=== PATIENT | female | born 1980 | race Two or more races ===

== ENCOUNTER 2016-11-18 11:22 | Emergency (ER) | payer OTHER ==
[2016-11-18 11:29] VITALS: BP 112/78; PULSE 77; TEMP 98.7; BMI 26.2
[2016-11-18 12:12] LABS: BASOPHIL 0.6 % (0-2.0); EOSINOPHIL 0.6 % (0-4.5); MCH 31.8 pg (25.7-33.7); MCHC 34.3 g/dl (32.0-36.0); MEAN CELL VOLUME 92.9 fl (80-96); MEAN PLT VOLUME 9.1 fl (7.5-11.1); NEUTROPHILS 61.7 % (42.8-82.8); PLATELET COUNT 325 K/MM3 (134-434); RDW 12.5 % (11.6-15.6)
[2016-11-18] MEDS ORDERED: KETOROLAC TROMETHAMINE 30 MG/1 ML VIAL IVPUSH ONE (12:17)
[2016-11-18 12:22] LABS: URINE APPEARANCE CLEAR; URINE BILIRUBIN NEGATIVE (NEGATIVE); URINE BLOOD NEGATIVE (NEGATIVE); URINE COLOR STRAW; URINE GLUCOSE (UA) NEGATIVE (NEGATIVE); URINE KETONE NEGATIVE (NEGATIVE); URINE LEUK ESTERASE NEGATIVE (NEGATIVE); URINE NITRITE NEGATIVE (NEGATIVE); URINE PROTEIN NEGATIVE (NEGATIVE); URINE UROBILINOGEN NEGATIVE mg/dL (0.2-1.0)
[2016-11-18 12:39] LABS: ALK PHOS 59 U/L (45-117); ANION GAP 7 (8-16); BILIRUBIN,TOTAL 0.4 mg/dL (0.2-1.0); CALCIUM 9.1 mg/dL (8.5-10.1); CO2 25 mmol/L (21-32); GLUCOSE,RANDOM 84 mg/dL (74-106); SGOT/AST 17 U/L (15-37); SGPT/ALT 14 U/L (12-78); TOT PROT 7.8 g/dl (6.4-8.2)
[2016-11-18] MEDS ORDERED: KETOROLAC TROMETHAMINE 15 MG/ML VIAL ONE (12:51)
--- NOTE | 2016-11-18 12:57 | PDOC ---
History of Present Illness - General History Source: Patient Exam Limitations: No Limitations - History of Present Illness Initial Comments: 11/18/16 13:20 Patient is a 34 year old female with no significant past medical history who presents for LLQ pain for 2 weeks. She states that the pain is constant, weaning and waning, radiating to the left back. She states that the pain is exacerbated by movement but not by positional changes. Patient reports urinary frequency and few blood drops in her urine. She states that she was seen by her PCP on Tuesday and was given Cipro which she developed allergic reaction to and was switched to Bactrim. She denies taking anything for the pain. Patient states that she was seen for the same complaint in 04/[address] and US which revealed 1.5 cm left ovarian cyst otherwise unremarkable. She denies any associated nausea/vomiting, diarrhea/constipation, fevers/chills , dysuria, abnormal vaginal discharge, dyspareunia, or any other symptoms. LMP 10/22/[address] Springer. She reports she has seen him for this pain and had lab work up for UTI. <Ruma Patterson - Last Filed: 11/18/16 13:20> <Checo Dorsey - Last Filed: 11/18/16 15:47> - General Chief Complaint: Pain Stated Complaint: LT SIDE PAIN Time Seen by Provider: 11/18/16 11:40 Past History <Ruma Patterson - Last Filed: 11/18/16 13:20> - Past Medical History Other medical history: NONE - Psycho/Social/Smoking Cessation Hx Anxiety: No Suicidal Ideation: No Smoking History: Never smoked Have you smoked in the past 12 months: No Number of Cigarettes Smoked Daily: 0 Information on smoking cessation initiated: No Hx Alcohol Use: No Drug/Substance Use Hx: No Substance Use Type: None <Checo Dorsey - Last Filed: 11/18/16 15:47> - Past Medical History Allergies/Adverse Reactions: Allergies Allergy/AdvReac Type Severity Reaction Status Date / Time ciprofloxacin [From Cipro] Allergy Verified 11/18/16 11:43 ciprofloxacin HCl Allergy Verified 11/18/16 11:43 [From Cipro] Penicillins Allergy Verified 11/18/16 11:25 Home Medications: Ambulatory Orders NK [No Known Home Medication] 10/04/15 Review of Systems - Review of Systems Able to Perform ROS?: Yes Comments:: 11/18/16 13:20 CONSTITUTIONAL: No reported: Fever, Chills, Diaphoresis, Generalized Weakness, Malaise, Loss of Appetite HEENT: No reported: Rhinorrhea, Nasal Congestion, Throat Pain, Throat Swelling, Difficulty Swallowing, Mouth Swelling, Ear Pain, Eye Pain, Visual Changes CARDIOVASCULAR: No reported: Chest Pain, Syncope, Palpitations, Irregular Heart Rate, Lightheadedness, Peripheral Edema RESPIRATORY: No reported: Cough, Shortness of Breath, SOB with Exertion, Orthopnea, Wheezing , Stridor, Hemoptysis GASTROINTESTINAL: Present: abdominal pain No reported: Abdominal Distension, Nausea, Vomiting, Diarrhea, Constipation, Melena, Hematochezia GENITOURINARY: No reported: Dysuria, Frequency, Urgency, Hesitancy, Flank Pain, Genital Pain MUSCULOSKELETAL: No reported: Myalgia, Arthralgia, Joint Swelling, Back pain, Neck Pain SKIN: No reported: Rash, Itching, Pallor HEMEATOLOGIC/IMMUNOLOGIC: No reported: Easy Bleeding, Easy Bruising, Lymphadenopathy, Frequent infections ENDOCRINE: No reported: Unexplained Weight Gain, Unexplained Weight Loss, Heat Intolerance , Cold Intolerance NEUROLOGIC: No reported: Headache, Focal Weakness, Paresthesias, Vertigo, Lightheadedness, Unsteady Gait, Seizure, Mental Status Changes, Incontinence PSYCHIATRIC: No reported: Anxiety, Depression <Ruma Patterson - Last Filed: 11/18/16 13:20> *Physical Exam - Vital Signs Last Vital Signs Temp Pulse Resp BP Pulse Ox 98.7 F 77 18 112/78 100 11/18/16 11:27 11/18/16 11:27 11/18/16 11:27 11/18/16 11:27 11/18/16 11:27 - Physical Exam Comments: 11/18/16 13:21 GENERAL: The patient is awake, alert, and fully oriented, Nontoxic - in no acute distress. HEAD: Normocephalic, atraumatic. EYES: extraocular movements intact, sclera anicteric, conjunctiva clear. ENT: Normal voice, Moist mucous membranes. NECK: Normal range of motion, supple LUNGS: Breath sounds equal, clear to auscultation bilaterally. No wheezes, no rhonchi, no rales. HEART: Regular rate and rhythm, without murmur, rub or gallop. ABDOMEN: (+)mild LLQ tenderness upon palpation. Soft, normoactive bowel sounds. No guarding, no rebound.No CVA tenderness EXTREMITIES: Normal range of motion, no edema. No clubbing or cyanosis. No cords , erythema, or tenderness. NEUROLOGICAL: No facial assymetry, Normal speech, PSYCH: Normal mood, normal affect. SKIN: Warm, Dry, normal turgor <Ruma Patterson - Last Filed: 11/18/16 13:20> - Vital Signs Last Vital Signs Temp Pulse Resp BP Pulse Ox 98.7 F 77 18 112/78 100 11/18/16 11:27 11/18/16 11:27 11/18/16 11:27 11/18/16 11:27 11/18/16 11:27 <Checo Dorsey - Last Filed: 11/18/16 15:47> ED Treatment Course - LABORATORY CBC & Chemistry Diagram: 11/18/16 12:00 11/18/16 12:00 - ADDITIONAL ORDERS Additional order review: Laboratory Results 11/18/16 11/18/16 11/18/16 12:00 12:00 12:00 Sodium 136 Potassium 3.9 Chloride 104 Carbon Dioxide 25 Anion Gap 7 L BUN 7 D Creatinine 1.0 D Creat Clearance w eGFR > 60 Random Glucose 84 Calcium 9.1 Total Bilirubin 0.4 D AST 17 ALT 14 Alkaline Phosphatase 59 Total Protein 7.8 Albumin 4.0 Urine Color Straw Urine Appearance Clear Urine pH 6.0 Urine Protein Negative Urine Glucose (UA) Negative Urine Ketones Negative Urine Blood Negative Urine Nitrite Negative Urine Bilirubin Negative Urine Urobilinogen Negative Ur Leukocyte Esterase Negative Urine HCG, Qual Negative 11/18/16 12:00 RBC 4.09 MCV 92.9 MCHC 34.3 RDW 12.5 MPV 9.1 Neutrophils % 61.7 D Lymphocytes % 28.7 D Monocytes % 8.4 Eosinophils % 0.6 Basophils % 0.6 - Medications Given in the ED: ED Medications Discontinued Medications Generic Name Dose Route Start Last Admin Trade Name Freq PRN Reason Stop Dose Admin Ketorolac Tromethamine 15 mg 11/18/16 12:17 11/18/16 12:47 Toradol Injection - IVPUSH 11/18/16 12:18 15 mg ONCE ONE Administration <Ruma Patterson - Last Filed: 11/18/16 13:20> - LABORATORY CBC & Chemistry Diagram: 11/18/16 12:00 11/18/16 12:00 - ADDITIONAL ORDERS Additional order review: Laboratory Results 11/18/16 11/18/16 11/18/16 12:00 12:00 12:00 Sodium 136 Potassium 3.9 Chloride 104 Carbon Dioxide 25 Anion Gap 7 L BUN 7 D Creatinine 1.0 D Creat Clearance w eGFR > 60 Random Glucose 84 Calcium 9.1 Total Bilirubin 0.4 D AST 17 ALT 14 Alkaline Phosphatase 59 Total Protein 7.8 Albumin 4.0 Urine Color Straw Urine Appearance Clear Urine pH 6.0 Urine Protein Negative Urine Glucose (UA) Negative Urine Ketones Negative Urine Blood Negative Urine Nitrite Negative Urine Bilirubin Negative Urine Urobilinogen Negative Ur Leukocyte Esterase Negative Urine HCG, Qual Negative 11/18/16 12:00 RBC 4.09 MCV 92.9 MCHC 34.3 RDW 12.5 MPV 9.1 Neutrophils % 61.7 D Lymphocytes % 28.7 D Monocytes % 8.4 Eosinophils % 0.6 Basophils % 0.6 - Medications Given in the ED: ED Medications Discontinued Medications Generic Name Dose Route Start Last Admin Trade Name Freq PRN Reason Stop Dose Admin Ketorolac Tromethamine 15 mg 11/18/16 12:17 11/18/16 12:47 Toradol Injection - IVPUSH 11/18/16 12:18 15 mg ONCE ONE Administration <Checo Dorsey - Last Filed: 11/18/16 15:47> Medical Decision Making - Medical Decision Making 11/18/16 12:54 36y F presenting with LLQ pain x 2 weeks with urinary frequency, was treated by PMD for UTI but sypmtmos not improving. no associated fever/chills, n/v. LMP approx 4 weeks ago. pts exam unremarkable with minimal LLQ tenderness and pt is worse with certain positions differential includes but not limited to ovarian cyst, vs /ectopic, ovarian torsion vs kidney stone vs msk pain will ck labs, ua will obtain TVUS will give pain meds will reassess A portion of this note was documented by scribe services under my direction. I have reviewed the details of the note, within reason, and agree with the documentation with the following case summary and management plan written by me 11/18/16 15:32 labs reviewed and ar normal UA normal TVUS neg for pathology suspec t possible msk cause will recommend supportive care including rest, NSDAIDS will have pt fu with PMD I discussed the physical exam findings, ancillary test results and final diagnoses with the patient. I answered all of the patient's questions. The patient was satisfied with the care received and felt comfortable with the discharge plan and treatment plan. The patient will call their primary care physician within 24 hours to arrange follow-up and will return to the Emergency Department with any new, persistent or worsening symptoms. <Checo Dorsey - Last Filed: 11/18/16 15:47> *DC/Admit/Observation/Transfer - Attestations Scribe Attestion: 11/18/16 13:21 Documentation prepared by GEETHA Liriano, acting as medical assistant supervisor for Checo Dorsey MD. <Ruma Patterson - Last Filed: 11/18/16 13:20> - Discharge Dispostion Admit: No <Checo Dorsey - Last Filed: 11/18/16 15:47> Diagnosis at time of Disposition: Abdominal muscle strain Qualifiers: Encounter type: initial encounter Qualified Code(s): S39.011A - Strain of muscle, fascia and tendon of abdomen, initial encounter - Discharge Dispostion Disposition: HOME Condition at time of disposition: Improved - Referrals Referrals: Bright Springer MD [Primary Care Provider] - - Patient Instructions Printed Discharge Instructions: DI for Abdominal Pain-Adult Additional Instructions: Return to the emergency department immediately with ANY new, persistent or worsening symptoms including worsening abdominal pain, fevers, inability to tolerate oral intake, chest pain, shortness of breath or any other concerns. Stay well hydrated. Take ibuprofen/tylenol as needed for pain. USe a heating pad for comfort You MUST call and follow up with your doctor tomorrow. Your emergency department visit is not complete without a followup with your doctor for reevaluation. Please make sure your doctor reviews the results of your emergency evaluation. Print Language: GUAMANIAN - Post Discharge Activity Work/School Note: Back to Work
== END 2016-11-18 15:00 | disposition home or self-care (01) ==
LOC: JER 11:22
PROC: 3E0233Z Introduction of Anti-inflammatory into Muscle, Percutaneous Approach (ICD-10-PCS; principal; 2016-11-18)
DX: S39.011A Strain of muscle, fascia and tendon of abdomen, initial encounter (principal); X58.XXXA Exposure to other specified factors, initial encounter; Y93.9 Activity, unspecified; Y92.9 Unspecified place or not applicable; Z88.0 Allergy status to penicillin; Z88.1 Allergy status to other antibiotic agents
CPT/HCPCS: 36415; 76830-TC; 80053; 81003; 84703; 85025; 87086; 99282-25

== ENCOUNTER 2017-04-16 07:01 | Emergency (ER) | payer OTHER ==
[2017-04-16 07:23] VITALS: TEMP 99.4; BMI 28.3
--- NOTE | 2017-04-16 07:49 | PDOC ---
History of Present Illness - General Chief Complaint: Vaginal Bleeding Stated Complaint: VAGINAL BLEEDING Time Seen by Provider: 04/16/17 07:30 - History of Present Illness Initial Comments: 04/16/17 09:09 The patient is a 36 year old G3A2P0 female with no significant PMH who presents for evaluation of vaginal bleeding. The patient states that he LMP was 1211 and she noted a positive home test 5 days ago. She states that she began having vaginal spotting 1 day ago before experiencing heavier vaginal bleeding today similar to her normal period with associated lower abdominal cramping. The patient denies any history of ectopic and denies any vaginal discharge or pain with urination. She denies fevers, chills, SOB, chest pain, lightheadedness, nausea, or vomiting. Past History - Past Medical History Allergies/Adverse Reactions: Allergies Allergy/AdvReac Type Severity Reaction Status Date / Time ciprofloxacin [From Cipro] Allergy Verified 04/16/17 07:19 ciprofloxacin HCl Allergy Verified 04/16/17 07:19 [From Cipro] Penicillins Allergy Verified 04/16/17 07:19 Home Medications: Ambulatory Orders NK [No Known Home Medication] 10/04/15 COPD: No - Suicide/Smoking/Psychosocial Hx Smoking History: Never smoked Have you smoked in the past 12 months: No Number of Cigarettes Smoked Daily: 0 Hx Alcohol Use: Yes (social) Drug/Substance Use Hx: No Substance Use Type: None Review of Systems - Review of Systems Comments:: 04/16/17 09:14 Constitutional: No fevers, chills, fatigue, malaise HEENT: No Rhinorrhea, nasal congestion, visual changes Cardiovascular: No chest pain, syncope, palpitations, lightheadedness Respiratory: No Cough, SOB, Hemoptysis, Gastrointestinal: Lower abdominal cramping. No Nausea, Vomiting, Constipation, Diarrhea, Melena Genitourinary: Vaginal bleeding. No Dysuria, Frequency, Urgency, Hesitancy, Hematuria, Flank pain Musculoskeletal: No Myalgia, arthralgia Skin: No rashes, bruising, pallor Neurologic: No Headache, Dizziness, Numbness, Weakness, or Tingling Psychiatric: No Hallucinations. No SI or HI *Physical Exam - Vital Signs Last Vital Signs Temp Pulse Resp BP Pulse Ox 99.4 F 82 18 137/77 97 04/16/17 07:16 04/16/17 07:16 04/16/17 07:16 04/16/17 07:16 04/16/17 07:16 - Physical Exam Comments: 04/16/17 09:15 General Appearance: Nourished. No Apparent Distress HEENT: JOHNATHON. No Pharyngeal Erythema, Tonsillar Exudate, Tonsillar Erythema Neck: No Cervical Lymphadenopathy Respiratory/Chest: Lungs Clear, Normal Breath Sounds. No Crackles, Rales, Rhonchi, Wheezing Cardiovascular: Regular Rhythm, Regular Rate. No Murmur, Gallops, Rubs Gastrointestinal/Abdominal: Normal Bowel Sounds, Soft. Mild left lower quadrant and suprapubic tenderness to deep palpation. No Guarding, Rebound, Genital Exam: Normal external exam. Significant amount of blood in the vaginal vault. Cervical Os is closed. No CMT or adenexal tenderness. Musculoskeletal: No CVA Tenderness Extremity: Normal Capillary Refill Integumentary: Normal Color, Dry, Warm Neurologic: Fully Oriented, Alert, Normal Mood/Affect, Normal Response, ED Treatment Course - LABORATORY CBC & Chemistry Diagram: 04/16/17 08:03 04/16/17 08:03 Medical Decision Making - Medical Decision Making 04/16/17 09:17 The patient is a 36 year old G3A2P0 female with no significant PMH who presents for evaluation of vaginal bleeding. Differential includes but is not limited to : Spontaneous , ectopic , uti, infectious, metabolic derangement. Given the patient's physical exam, it is likely her symptoms are due to a spontaneous . We will obtain a type and screen, cbc, cmp, beta -quant, ua and transvaginal US to evaluate further and continue to monitor and reassess. 04/16/17 09:41 cbc, cmp are unremarkable. Beta-quant is 8.6. Transvaginal US does not demonstrate any intrauterine or signs of ectopic at this time and repeat serial US will be needed. 04/16/17 10:50 UA is unremarkable. We are comfortable discharging the patient home at this time with close ANIMAL LABORATORY TECHNICIAN follow up for repeat testing. We discussed the results and the plan with the patient who voiced understanding and is agreeable with the plan. *DC/Admit/Observation/Transfer Diagnosis at time of Disposition: Vaginal bleeding - Discharge Dispostion Disposition: HOME Condition at time of disposition: Stable Admit: No - Referrals Referrals: Jeromy Robert [Primary Care Provider] - - Patient Instructions Printed Discharge Instructions: DI for Miscarriage, DI for Vaginal Bleeding Additional Instructions: Please return to the ER if you experience concerning or worsening symptoms including worsening vaginal bleeding, worsening abdominal pain, worsening weakness or lightheadedness. Your lab results were normal here in the ER. Your ultrasound did not show any , however you will need to follow up with your ANIMAL LABORATORY TECHNICIAN physician to have repeat blood work and a repeat ultrasound performed. It is extremely important that you call to schedule a follow up appointment with your ANIMAL LABORATORY TECHNICIAN within 1 week to be re-evaluated. - Post Discharge Activity
[2017-04-16] MEDS ORDERED: IBUPROFEN 600 MG TABLET (FP) PO ONE ×2 (08:11→08:13)
[2017-04-16 08:35] LABS: INR 1.04 (0.82-1.09); PROTHROMBIN TIME (PATIENT) 11.8 SEC (9.98-11.88)
[2017-04-16 08:37] LABS: ALBUMIN 3.4 g/dl (3.4-5.0); ANION GAP 7 (8-16); BILIRUBIN,TOTAL 0.4 mg/dL (0.2-1.0); BLOOD UREA NITROGEN 7 mg/dL (7-18); CALCIUM 8.5 mg/dL (8.5-10.1); CHLORIDE 108 mmol/L (98-107); CO2 25 mmol/L (21-32); CREATININE 0.9 mg/dL (0.55-1.02); GLUCOSE,RANDOM 69 mg/dL (74-106); POTASSIUM 4.3 mmol/L (3.5-5.1); SGOT/AST 17 U/L (15-37); SGPT/ALT 18 U/L (12-78); SODIUM 140 mmol/L (136-145); TOT PROT 7.2 g/dl (6.4-8.2)
[2017-04-16 08:38] LABS: ACTIVATED PTT 27.2 SECONDS (26.9-34.4); BASO % 0.9 % (0-2.0); EOS % 1.5 % (0-4.5); HEMATOCRIT 39.1 % (32.4-45.2); HEMOGLOBIN 12.7 GM/dL (10.7-15.3); LYMPH % 27.5 % (8-40); MCH 30.3 pg (25.7-33.7); MCHC 32.6 g/dl (32.0-36.0); NEUT % 61.1 % (42.8-82.8); PLATELET COUNT 344 K/MM3 (134-434); RDW 13.3 % (11.6-15.6); WHITE BLOOD COUNT 8.7 K/mm3 (4.0-10.0)
[2017-04-16 08:40] LABS: ALK PHOS 65 U/L (45-117)
--- NOTE | 2017-04-16 08:46 | PDOC ---
Attending Attestation - Resident Resident Name: Israel Wassermanel - ED Attending Attestation I have performed the following: I have examined & evaluated the patient, The case was reviewed & discussed with the resident, I agree w/resident's findings & plan, Exceptions are as noted - Physicial Exam PE: 04/16/17 09:27 Patient is awake and alert, afebrile, hemodynamically stable cta rrr sft, nt, nd - Medical Decision Making 04/16/17 09:27 Patient is a 36-year-old female, 3 para 0, at 4 weeks by LMP presents with crampy abdominal pain and vaginal bleeding. Differential diagnoses includes early IUP versus ectopic versus miscarriage. Beta-hCG is 8.6. Transvaginal shows no evidence of IUP or free fluid or evidence of ectopic. Will obtain type and screen to evaluate patient's Rh status. Will discharge with outpatient LITHARGE SUPERVISOR follow-up and ectopic precautions. 04/16/17 09:47 pt is Rh+. <Asad Quiroz - Last Filed: 04/16/17 09:47> - HPI HPI: 04/16/17 09:32 The patient is a 36 year old female with no significant PMH who presents to the emergency department with vaginal bleeding beginning approximately 1 day ago with associated lower abdominal cramping. She reports her vaginal bleeding began as spotting but noted significant bleeding similar to her period today. The patient notes she noted a positive home test about 5 days ago. She denies vaginal discharge or dysuria. She denies history of ectopic . LMP: 03/14/2017 Allergies: Ciprofloxacin, Ciprofloxacin HCl, Penicillins PCP: Dr. Robert <Brandt Mejias - Last Filed: 04/16/17 10:56>
[2017-04-16 09:59] LABS: URINE APPEARANCE CLOUDY; URINE BILIRUBIN NEGATIVE (NEGATIVE); URINE BLOOD 3+ (NEGATIVE); URINE COLOR RED; URINE GLUCOSE (UA) NEGATIVE (NEGATIVE); URINE KETONE NEGATIVE (NEGATIVE); URINE LEUK ESTERASE NEGATIVE (NEGATIVE); URINE NITRITE NEGATIVE (NEGATIVE); URINE PROTEIN 2+ (NEGATIVE); URINE UROBILINOGEN NEGATIVE mg/dL (0.2-1.0)
[2017-04-16 10:06] LABS: URINE MUCUS FEW
[2017-04-16 11:04] VITALS: BP 110/70; PULSE 70
== END 2017-04-16 10:50 | disposition home or self-care (01) ==
LOC: JER 07:01
DX: O26.891 Other specified pregnancy related conditions, first trimester (principal); O20.8 Other hemorrhage in early pregnancy; Z3A.01 Less than 8 weeks gestation of pregnancy
CPT/HCPCS: 36415; 76817-TC; 80053; 81003; 81015; 84702; 85025; 85610; 85730; 86850; 86900; 86901; 87086; 99284-25

== ENCOUNTER 2017-07-21 14:19 | Observation (INO) | payer OTHER ==
--- NOTE | 2017-07-21 14:32 | PDOC ---
Rapid Medical Evaluation Chief Complaint: Lightheaded Medical Evaluation: Allergies Allergy/AdvReac Type Severity Reaction Status Date / Time ciprofloxacin [From Cipro] Allergy Verified 07/21/17 14:27 ciprofloxacin HCl Allergy Verified 07/21/17 14:27 [From Cipro] Penicillins Allergy Verified 07/21/17 14:27 Vital Signs Temp Pulse Resp BP Pulse Ox 99 F 91 H 18 132/71 100 07/21/17 14:24 07/21/17 14:24 07/21/17 14:24 07/21/17 14:24 07/21/17 14:24 07/21/17 14:29 I have performed a brief in-person evaluation of this patient. The patient presents with a chief complaint of: Lightheaded, passed out on train yesterday, went to [facility] had labs drawn, fluids given. "but I feel like tingling on my left side and headache for the past couple of days." Pertinent physical exam findings: well appearing, no focal neuro deficits I have ordered the following: urine, labs The patient will proceed to the ED for further evaluation. Discharge Disposition - Diagnosis Lightheaded - Referrals Referrals: Jeromy Robert [Primary Care Provider] - - Patient Instructions - Post Discharge Activity
[2017-07-21 14:56] LABS: BASO % 0.8 % (0-2.0); EOS % 1.8 % (0-4.5); HEMATOCRIT 38.9 % (32.4-45.2); HEMOGLOBIN 13.4 GM/dL (10.7-15.3); LYMPH % 35.1 % (8-40); MCH 31.4 pg (25.7-33.7); MCHC 34.4 g/dl (32.0-36.0); MEAN CELL VOLUME 91.5 fl (80-96); MEAN PLT VOLUME 9.1 fl (7.5-11.1); MONO % 7.1 % (3.8-10.2); NEUT % 55.2 % (42.8-82.8); PLATELET COUNT 341 K/MM3 (134-434); RBC 4.25 M/mm3 (3.60-5.2); RDW 13.3 % (11.6-15.6); WHITE BLOOD COUNT 9.2 K/mm3 (4.0-10.0)
--- NOTE | 2017-07-21 15:04 | PDOC ---
History of Present Illness - General Chief Complaint: Lightheaded Stated Complaint: DIZZINESS,WEAKNESS,LT SIDE NUMBNESS Time Seen by Provider: 07/21/17 14:36 History Source: Patient Exam Limitations: No Limitations - History of Present Illness Initial Comments: 07/21/17 14:56 The patient is a 36F with no PMH who is presenting with L arm weakness and syncope. The patient states that she's had L arm numbness, tingling, and weakness constantly for the past 2-2.5 weeks. She denies any injuries to her neck or arms. She states that [place], she "passed out" and when she woke up she felt weak, had palpitations, and SOB. She denies urinary/bladder incontinence, tongue biting, and disorientation. She states that she's had a unilateral, constant, pressure-like headache without changes in vision since she woke up. She tried taking her migraine medication but it did not help her headache and she states that this "feels different" than her migraines. She denies CP, SOB, fever, chills, nausea, vomiting. She's complaining of entire L sided pain, L arm numbness, tingling, weakness, and the headache. Past History - Past Medical History Allergies/Adverse Reactions: Allergies Allergy/AdvReac Type Severity Reaction Status Date / Time ciprofloxacin [From Cipro] Allergy Verified 07/21/17 14:27 ciprofloxacin HCl Allergy Verified 07/21/17 14:27 [From Cipro] Penicillins Allergy Verified 07/21/17 14:27 Home Medications: Ambulatory Orders NK [No Known Home Medication] 10/04/15 COPD: No DVT: No - Reproductive History (#): 2 Para: 0 Therapeutic (s) & number: Yes (1) Spontaneous : 0 - Suicide/Smoking/Psychosocial Hx Smoking History: Never smoked Have you smoked in the past 12 months: No Number of Cigarettes Smoked Daily: 0 Information on smoking cessation initiated: No Hx Alcohol Use: No Drug/Substance Use Hx: No Substance Use Type: None Review of Systems - Review of Systems Able to Perform ROS?: Yes Comments:: 07/21/17 15:04 GENERAL/CONSTITUTIONAL: No fever or chills. HEAD, EYES, EARS, NOSE AND THROAT: No change in vision. No ear pain or discharge. No sore throat. CARDIOVASCULAR: No chest pain, palpitations, or lightheadedness. RESPIRATORY: No cough, wheezing, shortness of breath, or hemoptysis. GASTROINTESTINAL: No nausea, vomiting, diarrhea, constipation, or abdominal pain. GENITOURINARY: No dysuria, frequency, hematuria, or change in urination. MUSCULOSKELETAL: No joint or muscle swelling or pain. No neck or back pain. SKIN: No rash or lesions. NEUROLOGIC: Positive for headache, numbness, tingling, weakness, loss of consciousness, or change in strength/sensation. ENDOCRINE: No increased thirst. No abnormal weight change. HEMATOLOGIC/LYMPHATIC: No anemia, easy bleeding, or history of blood clots. ALLERGIC/IMMUNOLOGIC: No hives or skin allergy. Is the patient limited Zimbabwean proficient: No *Physical Exam - Vital Signs Last Vital Signs Temp Pulse Resp BP Pulse Ox 99 F 91 H 18 132/71 100 07/21/17 14:24 07/21/17 14:24 07/21/17 14:24 07/21/17 14:24 07/21/17 14:24 - Physical Exam Comments: 07/21/17 15:04 GENERAL: Well developed, well nourished. Awake and alert. No acute distress. HEENT: Normocephalic, atraumatic. Hearing grossly normal. Moist mucous membranes. PERRLA, EOMI. No conjunctival pallor. Sclera are non-icteric. Oropharynx is clear. NECK: Supple. Full ROM. No JVD. Carotid pulses 2+ and symmetric, without bruits. No thyromegaly. No lymphadenopathy. CARDIOVASCULAR: Regular rate and rhythm. No murmurs, rubs, or gallops. Distal pulses are 2+ and symmetric. PULMONARY: No evidence of respiratory distress. Lungs clear to auscultation bilaterally. No wheezing, rales or rhonchi. ABDOMINAL: Soft. Non-tender. Non-distended. No rebound or guarding. No organomegaly. Normoactive bowel sounds. GENITOURINARY: No CVA tenderness bilaterally. MUSCULOSKELETAL: Normal range of motion at all joints. No bony deformities or tenderness. EXTREMITIES: No cyanosis. No clubbing. No edema. No calf tenderness. SKIN: Warm and dry. Normal capillary refill. No rashes. No jaundice. NEUROLOGICAL: Alert, awake, appropriate. Cranial nerves 2-12 intact. Difference in sensation in LUE, feels rigging man than RUE. Eyebrow raise uneven in face, but smile and eye closure symmetric. Weakness in LUE. Pronator drift on the L present. Finger to nose normal bilaterally. Normal speech. Gait is normal without ataxia. PSYCHIATRIC: Cooperative. Good eye contact. Appropriate mood and affect. ED Treatment Course - LABORATORY CBC & Chemistry Diagram: 07/21/17 14:43 07/21/17 14:43 - RADIOLOGY Radiology Studies Ordered: Category Date Time Status HEAD CT WITHOUT CONTRAST [CT] Stat CT Scan 07/21/17 14:53 Ordered Medical Decision Making - Medical Decision Making 07/21/17 15:05 The patient is a 36F with no PMH who presents to the ER with a headache, L upper extremity weakness, numbness, tingling, and syncope. Will order labs and imaging. Pt looks comfortable but had significant weakness and pronator drift on the L side. 07/21/17 16:05 CBC, CMP negative. Pending UA. 07/21/17 18:24 I have discussed the patient with Dr. Landeros, neurology, who agrees to admission for the patient. 07/21/17 18:57 I have endorsed the patient to Dr. Motta for admission. *DC/Admit/Observation/Transfer Diagnosis at time of Disposition: Lightheaded - Discharge Dispostion Condition at time of disposition: Stable Admit: Yes - Referrals Referrals: Jeromy Robert [Primary Care Provider] - - Patient Instructions - Post Discharge Activity
[2017-07-21 15:32] LABS: ALBUMIN 3.7 g/dl (3.4-5.0); ANION GAP 4 (8-16); BLOOD UREA NITROGEN 9 mg/dL (7-18); CALCIUM 8.9 mg/dL (8.5-10.1); CHLORIDE 107 mmol/L (98-107); CO2 29 mmol/L (21-32); CREATININE 0.8 mg/dL (0.55-1.02); GLUCOSE,RANDOM 89 mg/dL (74-106); POTASSIUM 3.8 mmol/L (3.5-5.1); SGOT/AST 20 U/L (15-37); SGPT/ALT 14 U/L (12-78); SODIUM 140 mmol/L (136-145); TOT PROT 7.5 g/dl (6.4-8.2)
[2017-07-21 15:35] LABS: ALK PHOS 60 U/L (45-117)
[2017-07-21 15:38] LABS: BILIRUBIN,TOTAL < 0.1 mg/dL (0.2-1.0)
[2017-07-21 15:56] LABS: HCG,QUALITATIVE URINE NEGATIVE; URINE APPEARANCE CLEAR; URINE BILIRUBIN NEGATIVE (<2.0 mg/dL); URINE BLOOD NEGATIVE (NEGATIVE); URINE COLOR LTYELLOW; URINE GLUCOSE (UA) NEGATIVE (NEGATIVE); URINE KETONE NEGATIVE (NEGATIVE); URINE LEUK ESTERASE NEGATIVE (NEGATIVE); URINE NITRITE NEGATIVE (NEGATIVE); URINE PROTEIN NEGATIVE (NEGATIVE); URINE UROBILINOGEN NEGATIVE mg/dL (0.2-1.0)
--- NOTE | 2017-07-21 16:12 | PDOC ---
Attending Attestation - HPI HPI: 07/21/17 19:27 The patient is a 36 year old female with PMH of migraine is at the emergency department complaining of left arm weakness, tingling and numbness for the past 2 days. The patient reports she was on the train yesterday when she passed out and woke up feeling weak, SOB, chest pain and with heart palpitation. The patient reports after the subway she went to [facility] ER, where they took blood and EKG. The patient reports the ED said they werent sure. The patient reports she took maxalt for her headache which provided her with mild relief. The patient reports she was in her kitchen today when she felt like she was about to pass out and didnt feel normal. The patient reports having a meal today. The patient reports a recent change in her walk, she states she feels like shes about to fall to the right but denies falling. Denies any injury to her arm or head. The patient denies chest pain, shortness of breath,and dizziness. Denies fever, chills, nausea, vomit, diarrhea and constipation. Denies dysuria, frequency, urgency and hematuria. Allergies: Ciprofloxacin, Ciprofloxacin HCL and Penicillin. Social History: None reported Surgical History: None reported PCP: Dr. Robert - Physicial Exam PE: 07/21/17 19:27 GENERAL: Awake, alert, and fully oriented, in no acute distress HEAD: No signs of trauma EYES: PERRLA, EOMI, sclera anicteric, conjunctiva clear ENT: Auricles normal inspection, hearing grossly normal, nares patent, oropharynx clear without exudates. Moist mucosa NECK: Normal ROM, supple, no lymphadenopathy, JVD, or masses LUNGS: Breath sounds equal, clear to auscultation bilaterally. No wheezes, and no crackles HEART: Regular rate and rhythm, normal S1 and S2, no murmurs, rubs or gallops ABDOMEN: Soft, nontender, normoactive bowel sounds. No guarding, no rebound. No masses EXTREMITIES: Normal range of motion, no edema. No clubbing or cyanosis. No cords, erythema, or tenderness NEUROLOGICAL: Cranial nerves II through XII grossly intact. 4/5 weakness on left upper extremity tenderness and decrease sensation. Lower extremities 5/5. Paraspinal cervical tenderness. Left trapezius tenderness. Normal speech, normal gait SKIN: Warm, Dry, normal turgor, no rashes or lesions noted. - Medical Decision Making 07/21/17 19:30 Documentation prepared by Christine Prieto, acting as director of graduate medical education for Agustina Mary DO. <Christine Prieto - Last Filed: 07/21/17 19:27> - Resident Resident Name: [email or web address] - ED Attending Attestation I have performed the following: I have examined & evaluated the patient, The case was reviewed & discussed with the resident, I agree w/resident's findings & plan, Exceptions are as noted - Medical Decision Making 07/21/17 16:11 I, Dr. Agustina Mary DO, attest that this document has been prepared under my direction and personally reviewed by me in its entirety. I further attest, that it accurately reflects all work, treatment, procedures and medical decision -making performed by me. 07/21/17 17:47 a/p: 36yo female with L arm paresthesias, cp/sob/palpitations yesterday, syncope yesterday, lightheaded today, dyer -will check labs, ekg, cxr, head ct -ct cervical spine -will give meds for dyer -concern for poss MS - given abnl neuro exam, LUE mild weakness, LUE paresthesias, off balance -will give reglan, toradol, flexeril 07/21/17 18:[address] does not show acute findings still with paresthesias and weakness to LUE resident discussed case with Dr. Landeros who recommends obs and will see patient in consult will place in obs under SYMPHONy <Agustina Mary - Last Filed: 07/21/17 21:34> Heart Score/ECG Review - ECG Intrepretation Comment:: 07/21/17 21:34 sinus at 81, nl axis, nl interval, no acute st/t wave findings <Agustina Mary - Last Filed: 07/21/17 21:34>
[2017-07-21] MEDS ORDERED: METOCLOPRAMIDE HCL INJECTION 10 MG/2 ML VIAL IVPB ONE (16:53)
[2017-07-21] MEDS ORDERED: KETOROLAC TROMETHAMINE 60 MG/2 ML VIAL IM ONE (17:10)
[2017-07-21] MEDS ORDERED: METOCLOPRAMIDE HCL 10 MG TABLET (FP) PO ONE ×2 (17:10→17:13)
[2017-07-21] MEDS ORDERED: KETOROLAC TROMETHAMINE 60 MG/2 ML VIAL ONE (17:13)
[2017-07-21] MEDS ORDERED: ACETAMINOPHEN 325 MG TABLET (FP) PO ONE (17:48)
[2017-07-21] MEDS ORDERED: CYCLOBENZAPRINE HCL 10 MG TABLET (FP) PO ONE (17:48)
[2017-07-21] MEDS ORDERED: CYCLOBENZAPRINE HCL 10 MG TABLET (FP) ONE (17:58)
[2017-07-21] MEDS ORDERED: ACETAMINOPHEN 325 MG TABLET (FP) ONE (17:58)
--- NOTE | 2017-07-21 19:36 | HP ---
CHIEF COMPLAINT: " syncope yesterday, still feeling dizzy and Left arm weakness and numbness" PCP: Dr. Jeromy Robert HISTORY OF PRESENT ILLNESS: Patient is a 36-year-old female presented to the ED with the chief complaint of Left arm weakness and numbness. As per the patient, it started two weeks ago. It is also associated with pain and tingling sensation only in the left arm. Pt states that this is her first episode. Has h/o migraines, has been having severe headaches 10/10 for a couple of days. Usually takes mag salt for migraines which seems to help her. Patient also states that 2 days ago, while she was at dinner with a friend, she felt "weird", didn't feel like eating, had unsteady gait. Yesterday, while going to work in the morning at around 8:30am, she fainted while sitting on the train, duration unknown. Didn't have any symptoms or aura before or after the fainting episode. She woke up on her own, was drenched in sweat, had sob and papitations lasting for about 20 mins which then resolved. After the episodes, she went to [facility] ER. Pt says EKG was done, IV fluids were given and she was discharged. This morning, while she was in the kitchen, she felt very dizzy , had unsteady gait hence came in to the ED for further evaluation. Denies any focal neurological deficits, head trauma, chest pain, abdominal pain , nausea or vomiting. Bowel/Bladder habit normal. Sleep normal. ER course was notable for: (1) Afebrile, hemodynamically stable (2) CT head/Cervical CT normal (3) IV Fluids, tylenol, Cyclobenzaprine Recent Travel: None PAST MEDICAL HISTORY: Migraine PAST SURGICAL HISTORY: None Social History: Smoking: Denies Alcohol: Occasional Drugs: Denies OCCUPATION: Works at [employer] Family History: Non contributory Allergies ciprofloxacin [From Cipro] Allergy (Verified 07/21/17 14:27) ciprofloxacin HCl [From Cipro] Allergy (Verified 07/21/17 14:27) Penicillins Allergy (Verified 07/21/17 14:27) HOME MEDICATIONS: Home Medications Medication Instructions Recorded NK [No Known Home Medication] 10/04/15 REVIEW OF SYSTEMS CONSTITUTIONAL: Absent: fever, chills, diaphoresis, generalized weakness, malaise, loss of appetite, weight change HEENT: Absent: rhinorrhea, nasal congestion, throat pain, throat swelling, difficulty swallowing, mouth swelling, ear pain, eye pain, visual changes CARDIOVASCULAR: Absent: chest pain, syncope, palpitations, irregular heart rate, lightheadedness , peripheral edema RESPIRATORY: Absent: cough, shortness of breath, dyspnea with exertion, orthopnea, wheezing, stridor, hemoptysis GASTROINTESTINAL: Absent: abdominal pain, abdominal distension, nausea, vomiting, diarrhea, constipation, melena, hematochezia GENITOURINARY: Absent: dysuria, frequency, urgency, hesitancy, hematuria, flank pain, genital pain MUSCULOSKELETAL: Absent: myalgia, arthralgia, joint swelling, back pain, neck pain SKIN: Absent: rash, itching, pallor HEMATOLOGIC/IMMUNOLOGIC: Absent: easy bleeding, easy bruising, lymphadenopathy, frequent infections ENDOCRINE: Absent: unexplained weight gain, unexplained weight loss, heat intolerance, cold intolerance NEUROLOGIC: Present; Left arm numbness, tingling and pain, unsteady gait Absent: headache, seizure, mental status changes, bladder or bowel incontinence PSYCHIATRIC: Absent: anxiety, depression, suicidal or homicidal ideation, hallucinations. PHYSICAL EXAMINATION Vital Signs - 24 hr 07/21/17 14:24 Temperature 99 F Pulse Rate 91 H Respiratory 18 Rate Blood Pressure 132/71 O2 Sat by Pulse 100 Oximetry (%) GENERAL: Young female, sitting comfortably in bed, Awake, alert, and fully oriented, in no acute distress. HEAD: Normal with no signs of trauma. EYES: EOM intact, no nystagmus, no pallor or icterus. EARS, NOSE, THROAT: Ears normal. Dry mucous membranes. NECK: Supple. LUNGS:B/L Breath sounds equal, clear to auscultation bilaterally. No wheezes, and no crackles. No accessory muscle use. HEART: Regular rate and rhythm, normal S1 and S2 without murmur. ABDOMEN: Soft, nontender, not distended, normoactive bowel sounds, no guarding, no rebound, no masses. No hepatomegaly or splenomegaly. MUSCULOSKELETAL: Normal range of motion at all joints. No bony deformities or tenderness. No CVA tenderness. UPPER EXTREMITIES: 2+ pulses, warm, well-perfused. No cyanosis. No clubbing. No peripheral edema. LOWER EXTREMITIES: 2+ pulses, warm, well-perfused. No calf tenderness. No peripheral edema. NEUROLOGICAL: No facial droop, Power 5/5 in all extremities except Left upper ext-power 4/5, sensation intact, no focal neurological deficits, Cranial nerves II-XII intact. Normal speech. Gait not observed. PSYCHIATRIC: Cooperative. Good eye contact. Appropriate mood and affect. SKIN: Warm, dry, normal turgor, no rashes or lesions noted, normal capillary refill. Laboratory Results - last 24 hr 07/21/17 07/21/17 07/21/17 14:43 14:43 15:03 WBC 9.2 RBC 4.25 Hgb 13.4 Hct 38.9 MCV 91.5 MCH 31.4 MCHC 34.4 RDW 13.3 Plt Count 341 MPV 9.1 Neutrophils % 55.2 Lymphocytes % 35.1 D Monocytes % 7.1 Eosinophils % 1.8 Basophils % 0.8 Sodium 140 Potassium 3.8 Chloride 107 Carbon Dioxide 29 Anion Gap 4 L BUN 9 Creatinine 0.8 Creat Clearance w eGFR > 60 Random Glucose 89 Calcium 8.9 Total Bilirubin < 0.1 L D AST 20 ALT 14 Alkaline Phosphatase 60 Total Protein 7.5 Albumin 3.7 Urine Color Ltyellow Urine Appearance Clear Urine pH 6.0 Ur Specific Hurley 1.014 Urine Protein Negative Urine Glucose (UA) Negative Urine Ketones Negative Urine Blood Negative Urine Nitrite Negative Urine Bilirubin Negative Urine Urobilinogen Negative Ur Leukocyte Esterase Negative Urine HCG, Qual Negative ASSESSMENT/PLAN: Patient is a 36-year-old female presented to the ED with the chief complaint of Left arm weakness and numbness, headache, syncope, unsteady gait. # Left arm weakness/numbness/tingling with headache-likely due to Complex Migraine On arrival, vitals, labs, CT head, CT spine- normal, no acute pathology seen. Physical exam normal. Suspecting Complex migraine Admit in Tele 4S/ observation IV NS @ 75 mls/hr Tylenol PRN Will order TSH, Vitamin B12, Folate Frequent Neuro checks Dr. Landeros consult requested # FEN IV NS @ 75 mls/hr Electrolytes WNL Regular diet # Prophylaxis For DVT: Early ambulation For GI: Not indicated # Code Status: Full Code Illness, Investigation and Plan of care explained to the patient. She verbalized understanding. Case discussed with Dr. Lyons. Visit type - Emergency Visit Emergency Visit: Yes ED Registration Date: 07/21/17 Care time: The patient presented to the Emergency Department on the above date and was hospitalized for further evaluation of their emergent condition. - New Patient This patient is new to me today: Yes Date on this admission: 07/21/17 - Critical Care Critical Care patient: No Hospitalist Screening - Colonoscopy Questionnaire Colonoscopy Questionnaire: Colonoscopy Questionnaire - Patient: 50 - 75 years old and never had a screening colonoscopy: No History of colon or rectal polyps, or CA: No History of IBD, Crohn's disease or UC: No History of abdominal radiation therapy as a child: No - Relative: 1 with colon or rectal CA, or polyps at age 60 or younger: No Colon or rectal CA diagnosed at age 45 or younger: No Multiple relatives with colon or rectal CA: No - Outcome: Screening Result: Negative Screen
[2017-07-21] MEDS ORDERED: ACETAMINOPHEN 325 MG TABLET (FP) PO PRN (19:52)
--- NOTE | 2017-07-21 20:43 | PN ---
Teaching Attending Note Name of Resident: Angela Castillo ATTENDING PHYSICIAN STATEMENT I saw and evaluated the patient. I reviewed the resident's note and discussed the case with the resident. I agree with the resident's findings and plan as documented. SUBJECTIVE: 36F pmhmigraine p/w left sided numbness, weakness for two weeks. Yesterday morning after feeling lightheaded she reports having episode of [place] , and woke up feeling chest tightness and dyspnea for about 20 minutes prior to spontaneous resolution. She has been having left sided headache since that time as well. Went to [facility] where EKG done and then discharged, apparently no other imaging done. She had lightheadedness again this morning prompting her return OBJECTIVE: NAD, AAOx3 Neuro: no focal defecits, strength 5/5 bilateral upper and lower ext. sensation equal bilaterally. CV: RRR Lungs: CTA ASSESSMENT AND PLAN: Syncope and collapse, with likely complicated migraine after. send D-Dimer to evaluate for PE IVF Neuro Eval Obs on Tele to eval if any arrhythmias
[2017-07-21 20:52] VITALS: BMI 29.7
[2017-07-22 07:54] LABS: EOS % 2.8 % (0-4.5); HEMATOCRIT 38.7 % (32.4-45.2); HEMOGLOBIN 13.1 GM/dL (10.7-15.3); LYMPH % 35.1 % (8-40); MCHC 33.9 g/dl (32.0-36.0); MEAN CELL VOLUME 91.4 fl (80-96); MONO % 10.2 % (3.8-10.2); NEUT % 50.9 % (42.8-82.8); PLATELET COUNT 324 K/MM3 (134-434); RBC 4.23 M/mm3 (3.60-5.2); RDW 13.5 % (11.6-15.6); WHITE BLOOD COUNT 6.8 K/mm3 (4.0-10.0)
[2017-07-22 08:31] LABS: ALBUMIN 3.3 g/dl (3.4-5.0); ANION GAP 4 (8-16); BLOOD UREA NITROGEN 11 mg/dL (7-18); CALCIUM 8.4 mg/dL (8.5-10.1); CHLORIDE 107 mmol/L (98-107); CO2 27 mmol/L (21-32); CREATININE 0.8 mg/dL (0.55-1.02); GLUCOSE,RANDOM 92 mg/dL (74-106); MAGNESIUM 1.9 mg/dL (1.8-2.4); PHOSPHOROUS 4.1 mg/dL (2.5-4.9); POTASSIUM 4.4 mmol/L (3.5-5.1); SGOT/AST 17 U/L (15-37); SGPT/ALT 16 U/L (12-78); SODIUM 138 mmol/L (136-145)
[2017-07-22 08:42] LABS: ALK PHOS 52 U/L (45-117); BILIRUBIN,TOTAL 0.4 mg/dL (0.2-1.0); TOT PROT 6.9 g/dl (6.4-8.2)
[2017-07-22] MEDS ORDERED: ACETAMINOPHEN/CAFFEINE/BUTALBITAL 1 TAB PO ONE (09:50)
--- NOTE | 2017-07-22 09:56 | EKG ---
Test Reason : Blood Pressure : / mmHG Vent. Rate : 081 BPM Atrial Rate : 081 BPM P-R Int : 128 ms QRS Dur : 072 ms QT Int : 378 ms P-R-T Axes : 050 018 028 degrees QTc Int : 439 ms NORMAL SINUS RHYTHM NORMAL ECG NO PREVIOUS ECGS AVAILABLE Confirmed by VIVIAN ADKINS MD ([id number]) on 07/22/2017 9:56:08 AM Referred By: Confirmed By:VIVIAN ADKINS MD
[2017-07-22] MEDS ORDERED: ACETAMINOPHEN/CAFFEINE/BUTALBITAL 1 TAB ONE (13:01)
[2017-07-22] MEDS: SODIUM CHLORIDE 1,000 ML IV SCH ×2 (14:30→22:28)
--- NOTE | 2017-07-22 14:56 | PN ---
Teaching Attending Note Name of Resident: Aristides Ortega ATTENDING PHYSICIAN STATEMENT I saw and evaluated the patient. I reviewed the resident's note and discussed the case with the resident. I agree with the resident's findings and plan as documented. SUBJECTIVE: no fever or chills . has numbness and tingling in LUE x 2 weeks , NOGUERA in L kaycee head and posterior scalp x 2 days no visual changes but has photophobia. has no neck rigidity. has no urinary incontinence. had h/o migrains with aura ( visual spots) , that stopped a year ago after dc control pills . no n/V. OBJECTIVE: NAD, AAOx3 . TTP over L forehead and L sided scalp. CV: RRR, no MRG Lungs: CTAB Ext: no edema Neuro : EOMI, round equal pupils , reactive to light , no facial droop, tongue and uvula at mid line , nl facial sensation . strength : LUE: shoulder abduction , and flexion 5/5 . biceps 5/5 . triceps 4/5 , wrist flexion 4/5 , wrist extension 5/5 , hand galley boy weaker than R RUE: shoulder abduction , and flexion 5/5 . biceps 5/5 . triceps 5/5 , wrist flexion 5/5 , wrist extension 5/5 , hand galley boy weaker than R LE : 5/5 in hip flexion , knee flexion and extension , ankle dorsiflexion and plantar flexion 5/5 Sensatio to light touch nl. reflexes 2+ knee jerk, biceps , triceps and brachioradialis b/l Nl nose to finger ASSESSMENT AND PLAN: 36 y/o lady with h/o Migraines who presented with LUE numbness/tingling, and NOGUERA as well as questionable LOC . 1- LOC: this history is questionable. possibly [place] tele monitoring. EKG reviewed. check orthostatic VS 2- LUE numbness , tingling and weakness: no clear etiology. duration 2 weeks . could be due to bulged cervical disc, vs intracranial etiology given recurrence of her migraines after a year of remission - check MRI of brain - if brain MRI is neg , will check C spine MRI - Neuro eval pending 3- NOGUERA , migraines vs cervical nerve root compression. - benadryl, IVF , and fioricet dispo : monitor
--- NOTE | 2017-07-22 18:39 | CON.NEURO ---
Consult Consult Specialty:: neurology Referred by:: Cleve Leslie Reason for Consultation:: Headache, syncope, left sided sensory disturbance - History of Present Illness Chief Complaint: headaches, fainting, left sided weakness and numbness History of Present Illness: 36 year old woman with history of migraine that had gone away about a year ago when she stoped oral contraceptives. She says that last , she had a syncopal episode and awoke with left sided sensory disturbance and headache similar to her typical migraine. Her left side tingles and feels numb and is subjectively weak. Went to [facility] Er and discharged. 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 ...LMP: 07/07/17 ...LMP Comment: 2 weeks ago - Alcohol/Substance Use Hx Alcohol Use: No - Smoking History Smoking history: Never smoked Have you smoked in the past 12 months: No Aproximately how many cigarettes per day: 0 Home Medications - Allergies Allergies/Adverse Reactions: Allergies Allergy/AdvReac Type Severity Reaction Status Date / Time ciprofloxacin [From Cipro] Allergy Verified 07/21/17 14:27 ciprofloxacin HCl Allergy Verified 07/21/17 14:27 [From Cipro] Penicillins Allergy Verified 07/21/17 14:27 - Home Medications Home Medications: Ambulatory Orders NK [No Known Home Medication] 10/04/15 Physical Exam-Neuro Vital Signs: Vital Signs Temperature 98.4 F 07/22/17 18:00 Pulse Rate 74 07/22/17 18:00 Respiratory Rate 18 07/22/17 18:00 Blood Pressure 120/69 07/22/17 18:00 O2 Sat by Pulse Oximetry (%) 99 07/22/17 12:00 Labs: CBC, BMP 07/22/17 07:15 07/22/17 07:15 Imaging - Results Cat Scan: Report Reviewed, Image Reviewed (negative brain ct) Problem List - Problems (1) Migraine with aura and with status migrainosus Code(s): G43.101 - MIGRAINE WITH AURA, NOT INTRACTABLE, WITH STATUS MIGRAINOSUS Qualifiers: Intractability: intractable Qualified Code(s): G43.111 - Migraine with aura , intractable, with status migrainosus (2) Syncope Code(s): R55 - SYNCOPE AND COLLAPSE Assessment/Plan 1 week of ongoing problem. To get MRI brain tonight, r/o demyelinating disease. Doubt infarction, though migrainous inarction is possible. Will start IV Depacon 500 q 12.
--- NOTE | 2017-07-22 21:03 | PN ---
Physical Exam: SUBJECTIVE: Patient seen and examined at bedside. Mild improvement in NOGUERA this AM. Patient continues to complain of left sided numbness and tingling. OBJECTIVE: Vital Signs Period Temp Pulse Resp BP Sys/Keene Pulse Ox Last 24 Hr 97.9 F-98.5 F 64-93 14-18 109-137/62-86 97-99 GENERAL: The patient is awake, alert, and fully oriented, in no acute distress. HEAD: Normal with no signs of trauma. EYES: PERRL, extraocular movements intact, sclera anicteric, conjunctiva clear. No ptosis. NECK: Trachea midline, full range of motion, supple. LUNGS: Breath sounds equal, clear to auscultation bilaterally, no wheezes, no crackles, no accessory muscle use. HEART: Regular rate and rhythm, S1, S2 without murmur, rub or gallop. ABDOMEN: Soft, nontender, nondistended, normoactive bowel sounds, no guarding, no rebound, no hepatosplenomegaly, no masses. EXTREMITIES: 2+ pulses, warm, well-perfused, no edema. NEUROLOGICAL: Cranial nerves II through X grossly intact. Normal speech, gait not observed. Strength 5/5 in both lower extremities. Strength 5/5 in right upper extremity. Strength 4/5 in left upper extremity. PSYCH: Normal mood, normal affect. SKIN: Warm, dry, normal turgor, no rashes or lesions noted Laboratory Results - last 24 hr 07/21/17 07/22/17 07/22/17 21:30 07:15 07:15 WBC 6.8 RBC 4.23 Hgb 13.1 Hct 38.7 MCV 91.4 MCH 31.0 MCHC 33.9 RDW 13.5 Plt Count 324 MPV 9.0 Neutrophils % 50.9 Lymphocytes % 35.1 Monocytes % 10.2 Eosinophils % 2.8 Basophils % 1.0 D-Dimer < 148 Sodium 138 Potassium 4.4 Chloride 107 Carbon Dioxide 27 Anion Gap 4 L BUN 11 Creatinine 0.8 Creat Clearance w eGFR > 60 Random Glucose 92 Calcium 8.4 L Phosphorus 4.1 Magnesium 1.9 Total Bilirubin 0.4 D AST 17 ALT 16 Alkaline Phosphatase 52 Total Protein 6.9 Albumin 3.3 L Vitamin B12 Serum Folate 16 TSH 1.17 07/22/17 07:15 WBC RBC Hgb Hct MCV MCH MCHC RDW Plt Count MPV Neutrophils % Lymphocytes % Monocytes % Eosinophils % Basophils % D-Dimer Sodium Potassium Chloride Carbon Dioxide Anion Gap BUN Creatinine Creat Clearance w eGFR Random Glucose Calcium Phosphorus Magnesium Total Bilirubin AST ALT Alkaline Phosphatase Total Protein Albumin Vitamin B12 362 Serum Folate TSH Active Medications Generic Name Dose Route Start Last Admin Trade Name Freq PRN Reason Stop Dose Admin Acetaminophen 650 mg 07/21/17 19:52 07/22/17 09:03 Tylenol - PO 650 mg Q6H PRN Administration PAIN LEVEL 7 - 10 Sodium Chloride 1,000 mls @ 75 mls/hr 07/21/17 19:45 07/22/17 14:30 Normal Saline - IV 75 mls/hr ASDIR KELLY Administration Valproate Sodium 500 mg 07/22/17 22:00 Depacon Injection - IVPB BID KELLY ASSESSMENT/PLAN: Patient is a 36-year-old female presented to the ED with the chief complaint of Left arm weakness and numbness, headache, syncope, unsteady gait. #Left arm weakness/numbness/tingling with headache likely 2/2 complex migraine, r/o migranous infarct, r/o Cspine nerve impingement -CThead/cspine WNL -MRI brain w&w/o -neuro consult: Dr. Sousa -r/o demyelinating disease -NS @ 75 -Fiorecet PRN -Depcon 500mg BID per neuro #Syncope -palpitations after episode per patient -no events on tele -will monitor -consider cardio consult if tele abnormalities # FEN -IV NS @ 75 mls/hr -Electrolytes WNL -Regular diet #Prophylaxis -early ambulation #Dispo -admit to OBS tele Visit type - Emergency Visit Emergency Visit: Yes ED Registration Date: 07/21/17 Care time: The patient presented to the Emergency Department on the above date and was hospitalized for further evaluation of their emergent condition. - New Patient This patient is new to me today: Yes Date on this admission: 07/22/17 - Critical Care Critical Care patient: No
[2017-07-22] MEDS ORDERED: PT OWN MED DRAWER 7, Y5N ONE (22:27)
[2017-07-22] MEDS: ACETAMINOPHEN/CAFFEINE/BUTALBITAL 1 TAB PO PRN (22:29)
[2017-07-22] MEDS: VALPROATE SODIUM 500 MG/5 ML VIAL IVPB SCH ×2 (22:55→23:00)
[2017-07-23] MEDS: SODIUM CHLORIDE 1,000 ML IV SCH (06:15)
--- NOTE | 2017-07-23 07:34 | PN ---
Physical Exam: SUBJECTIVE: Patient seen and examined feels better this morning. she did not want to the valproate last night because she was concerned about the side effects and need to continue once initiated, still has some photophobia no events on monitor overnight OBJECTIVE: Vital Signs Period Temp Pulse Resp BP Sys/Keene Pulse Ox Last 24 Hr 98.1 F-98.5 F 74-93 14-18 102-137/50-86 99-99 GENERAL: The patient is awake, alert, and fully oriented, in no acute distress. HEAD: Normal with no signs of trauma. EYES: PERRL, extraocular movements intact, sclera anicteric, conjunctiva clear. No ptosis. ENT: oropharynx clear without exudates, moist mucous membranes. NECK: Trachea midline, full range of motion, supple. no LAD, no thyromegaly LUNGS: Breath sounds equal, clear to auscultation bilaterally, no wheezes, no crackles, no accessory muscle use. HEART: Regular rate and rhythm, S1, S2 without murmur, rub or gallop. ABDOMEN: Soft, nontender, nondistended, normoactive bowel sounds, no guarding, no rebound, no hepatosplenomegaly, no masses. EXTREMITIES: 2+ radial and DP pulses, warm, well-perfused, no edema. no joint swelling NEUROLOGICAL: Cranial nerves II through XII grossly intact. Normal speech. Left upper extremity: 4/5 handgrip/wrist flexion and extention. 5/5 triceps/ biceps/shoulder extension and flexion. +brachioradilias reflex Right upper extremity: 5/5 in all muscle groups with flexion and extension b/l lower extremities with 5/5 in all muscle groups patellar relfex intact b/l PSYCH: Normal mood, normal affect. SKIN: Warm, dry, normal turgor, no rashes or lesions noted Laboratory Results - last 24 hr 07/22/17 07/22/17 07/22/17 07:15 07:15 07:15 WBC 6.8 RBC 4.23 Hgb 13.1 Hct 38.7 MCV 91.4 MCH 31.0 MCHC 33.9 RDW 13.5 Plt Count 324 MPV 9.0 Neutrophils % 50.9 Lymphocytes % 35.1 Monocytes % 10.2 Eosinophils % 2.8 Basophils % 1.0 Sodium 138 Potassium 4.4 Chloride 107 Carbon Dioxide 27 Anion Gap 4 L BUN 11 Creatinine 0.8 Creat Clearance w eGFR > 60 Random Glucose 92 Calcium 8.4 L Phosphorus 4.1 Magnesium 1.9 Total Bilirubin 0.4 D AST 17 ALT 16 Alkaline Phosphatase 52 Total Protein 6.9 Albumin 3.3 L Vitamin B12 362 Serum Folate 16 TSH 1.17 Active Medications Generic Name Dose Route Start Last Admin Trade Name Jose Guadalupeq PRN Reason Stop Dose Admin Acetaminophen/Butalbital/Caffeine 1 tablet 07/22/17 20:57 07/22/17 22:29 Fioricet - PO 1 tablet Q6H PRN Administration HEADACHE Sodium Chloride 1,000 mls @ 75 mls/hr 07/21/17 19:45 07/23/17 06:15 Normal Saline - IV 75 mls/hr ASDIR KELLY Administration Valproate Sodium 500 mg 07/22/17 22:00 07/22/17 23:00 Depacon Injection - IVPB Not Given BID KELLY ASSESSMENT/PLAN: 36 yr old woman with hx of migraines presented with headache, numbess and tingling in left arm, in hospital for further evaluation. #Migraine - improved with fiorecet yesterday, pt did not want valproate - brain MRI negative for mass/lesion - reviewed findings with neurology, can be dc'd with prn fiorcet 15tabs and f.u outpatient, this is likely a complex migraine #Syncope - hx as noted by patient - no arrhythmias recorded on monitor, no repeat episodes during hospitalization - recommend f.u with PCP #dispo: stable to dc and f.u and outpatient Visit type - Emergency Visit Emergency Visit: No - New Patient This patient is new to me today: Yes Date on this admission: 07/23/17 - Critical Care Critical Care patient: No - Discharge Referral Referred to [facility] No
[2017-07-23 07:52] LABS: HEMATOCRIT 35.6 % (32.4-45.2); MCH 31.1 pg (25.7-33.7); MCHC 33.7 g/dl (32.0-36.0); MEAN CELL VOLUME 92.3 fl (80-96); MEAN PLT VOLUME 9.8 fl (7.5-11.1); PLATELET COUNT 285 K/MM3 (134-434); RBC 3.86 M/mm3 (3.60-5.2); RDW 12.9 % (11.6-15.6); WHITE BLOOD COUNT 8.1 K/mm3 (4.0-10.0)
[2017-07-23 08:24] LABS: CHLORIDE 109 mmol/L (98-107); POTASSIUM 4.4 mmol/L (3.5-5.1); SODIUM 141 mmol/L (136-145)
[2017-07-23 08:31] LABS: ANION GAP 9 (8-16); BLOOD UREA NITROGEN 18 mg/dL (7-18); CALCIUM 8.2 mg/dL (8.5-10.1); CO2 23 mmol/L (21-32); CREATININE 0.9 mg/dL (0.55-1.02); GLUCOSE,RANDOM 85 mg/dL (74-106)
[2017-07-23] MEDS ORDERED: PT OWN MED DRAWER 7, Y5N ONE (08:54)
[2017-07-23] MEDS: ACETAMINOPHEN/CAFFEINE/BUTALBITAL 1 TAB PO PRN (09:20)
[2017-07-23] MEDS: VALPROATE SODIUM 500 MG/5 ML VIAL IVPB SCH (09:26)
--- NOTE | 2017-07-23 10:02 | PN ---
Teaching Attending Note Name of Resident: Martha Bowman ATTENDING PHYSICIAN STATEMENT I saw and evaluated the patient. I reviewed the resident's note and discussed the case with the resident. I agree with the resident's findings and plan as documented. SUBJECTIVE: NOGUERA is better . has no fever or chills. L UE numbness and tingling is the same. no other weakness, no blurry vision OBJECTIVE: NAD, AAOx3 . CV: RRR, no MRG Lungs: CTAB Ext: no edema or erythema Neuro : EOMI, round equal pupils , reactive to light , no facial droop, tongue and uvula at mid line , nl facial sensation . strength : LUE: shoulder abduction , and flexion 5/5 . biceps 5/5 . 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 biceps 5/5 . triceps 5/5 , wrist flexion 5/5 , wrist extension 5/5 , NL hand dock worker LE : 5/5 in hip flexion , knee flexion and extension , ankle dorsiflexion and plantar flexion 5/5 Sensatino to light touch nl. reflexes 2+ knee jerk, biceps , triceps and brachioradialis b/l ASSESSMENT AND PLAN: 36 y/o lady with h/o Migraines who presented with LUE numbness/tingling, and NOGUERA as well as questionable LOC . 1- LOC: this history is questionable. possibly [place] with no events no orthostatic change in BP 2- LUE numbness , tingling and weakness: no clear etiology.NO demylinating lesions on MRI, no infarct or tumor. still need to investigate the C spine , but patient want that done as out pt , and understand the importance of follow up to avoid any missed pathology . 3- NOGUERA , migraines vs cervical nerve root compression. - improved on fioricet, . valproic acid did not help much. - prescription of fioricet as out pt dispo : dc home today
--- NOTE | 2017-07-23 10:16 | PN ---
Progress Note (short form) - Note Progress Note: 36 year old woman with history of migraine that had gone away about a year ago when she stoped oral contraceptives. She says that last , she had a syncopal episode and awoke with left sided sensory disturbance and headache similar to her typical migraine. Her left side tingles and feels numb and is subjectively weak. FU : intermittent numbness left arm, (not leg or face) NOGUERA much better scans MRI BRain WNL Impression: No evidence of enhancing intra-axial or extra-axial neoplasm. No evidence of demyelinating plaques, hemorrhage or acute infarction. No evidence of acute intracerebral hemorrhage, subdural fluid collection or hydrocephalus. 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 ...LMP: 07/07/17 ...LMP Comment: 2 weeks ago - Alcohol/Substance Use Hx Alcohol Use: No - Smoking History Smoking history: Never smoked Have you smoked in the past 12 months: No Aproximately how many cigarettes per day: 0 Home Medications - Allergies Allergies/Adverse Reactions: Allergies Allergy/AdvReac Type Severity Reaction Status Date / Time ciprofloxacin [From Cipro] Allergy Verified 07/21/17 14:27 ciprofloxacin HCl Allergy Verified 07/21/17 14:27 [From Cipro] Penicillins Allergy Verified 07/21/17 14:27 - Home Medications Home Medications: Ambulatory Orders NK [No Known Home Medication] 10/04/15 Physical Exam-Neuro Vital Signs: Vital Signs Temperature 98.4 F 07/22/17 18:00 Pulse Rate 74 07/22/17 18:00 Respiratory Rate 18 07/22/17 18:00 Blood Pressure 120/69 07/22/17 18:00 O2 Sat by Pulse Oximetry (%) 99 07/22/17 12:00 Labs: CBCD WBC 8.1 K/mm3 (4.0-10.0) 07/23/17 05:55 RBC 3.86 M/mm3 (3.60-5.2) 07/23/17 05:55 Hgb 12.0 GM/dL (10.7-15.3) 07/23/17 05:55 Hct 35.6 % (32.4-45.2) 07/23/17 05:55 MCV 92.3 fl (80-96) 07/23/17 05:55 MCHC 33.7 g/dl (32.0-36.0) 07/23/17 05:55 RDW 12.9 % (11.6-15.6) 07/23/17 05:55 Plt Count 285 K/MM3 (134-434) 07/23/17 05:55 MPV 9.8 fl (7.5-11.1) 07/23/17 05:55 CMP Sodium 141 mmol/L (136-145) 07/23/17 05:55 Potassium 4.4 mmol/L (3.5-5.1) 07/23/17 05:55 Chloride 109 mmol/L (98-107) H 07/23/17 05:55 Carbon Dioxide 23 mmol/L (21-32) 07/23/17 05:55 Anion Gap 9 (8-16) 07/23/17 05:55 BUN 18 mg/dL (7-18) 07/23/17 05:55 Creatinine 0.9 mg/dL (0.55-1.02) 07/23/17 05:55 Creat Clearance w eGFR > 60 (>60) 07/22/17 07:15 Calcium 8.2 mg/dL (8.5-10.1) L 07/23/17 05:55 Total Bilirubin 0.4 mg/dL (0.2-1.0) D 07/22/17 07:15 AST 17 U/L (15-37) 07/22/17 07:15 ALT 16 U/L (12-78) 07/22/17 07:15 Alkaline Phosphatase 52 U/L (45-117) 07/22/17 07:15 Total Protein 6.9 g/dl (6.4-8.2) 07/22/17 07:15 Albumin 3.3 g/dl (3.4-5.0) L 07/22/17 07:15 Imaging - Results Cat Scan: Report Reviewed, Image Reviewed (negative brain ct) Problem List - Problems (1) Migraine with aura and with status migrainosus Code(s): G43.101 - MIGRAINE WITH AURA, NOT INTRACTABLE, WITH STATUS MIGRAINOSUS Qualifiers: Intractability: intractable Qualified Code(s): G43.111 - Migraine with aura , intractable, with status migrainosus (2) Syncope Code(s): R55 - SYNCOPE AND COLLAPSE Assessment/Plan MIgraine with proloned aura?-- vs postional entrapment in arm neurologically stable outpt MRI C spine DC home and kindly arrange for outpt FU thanks Dr Landeros [phone]
[2017-07-23 11:29] VITALS: BP 106/56; PULSE 75; TEMP 98.4
--- NOTE | 2017-07-23 12:45 | DS ---
Physical Exam: SUBJECTIVE: Patient seen and examined. feels well. no complaints OBJECTIVE: Vital Signs Period Temp Pulse Resp BP Sys/Keene Pulse Ox Last 24 Hr 98.1 F-98.4 F 74-93 14-18 102-137/50-86 99-99 PHYSICAL EXAM GENERAL: The patient is awake, alert, and fully oriented, in no acute distress. HEAD: Normal with no signs of trauma. EYES: PERRL, extraocular movements intact, sclera anicteric, conjunctiva clear. No ptosis. ENT: oropharynx clear without exudates, moist mucous membranes. NECK: Trachea midline, full range of motion, supple. no LAD, no thyromegaly LUNGS: Breath sounds equal, clear to auscultation bilaterally, no wheezes, no crackles, no accessory muscle use. HEART: Regular rate and rhythm, S1, S2 without murmur, rub or gallop. ABDOMEN: Soft, nontender, nondistended, normoactive bowel sounds, no guarding, no rebound, no hepatosplenomegaly, no masses. EXTREMITIES: 2+ radial and DP pulses, warm, well-perfused, no edema. no joint swelling NEUROLOGICAL: Cranial nerves II through XII grossly intact. Normal speech. Left upper extremity: 4/5 handgrip/wrist flexion and extention. 5/5 triceps/ biceps/shoulder extension and flexion. +brachioradilias reflex Right upper extremity: 5/5 in all muscle groups with flexion and extension b/l lower extremities with 5/5 in all muscle groups patellar relfex intact b/l PSYCH: Normal mood, normal affect. SKIN: Warm, dry, normal turgor, no rashes or lesions noted LABS Laboratory Results - last 24 hr 07/23/17 07/23/17 05:55 05:55 WBC 8.1 RBC 3.86 Hgb 12.0 Hct 35.6 MCV 92.3 MCH 31.1 MCHC 33.7 RDW 12.9 Plt Count 285 MPV 9.8 Sodium 141 Potassium 4.4 Chloride 109 H Carbon Dioxide 23 Anion Gap 9 BUN 18 Creatinine 0.9 Random Glucose 85 Calcium 8.2 L Laboratory Tests 07/21/17 07/22/17 07/22/17 15:03 07:15 07:15 Vitamin B12 362 Serum Folate 16 TSH 1.17 Ur Specific [place] 1.014 Urine Glucose (UA) Negative Urine Ketones Negative Urine Blood Negative Ur Leukocyte Esterase Negative Urine HCG, Qual Negative MRI: FINDINGS: There is no acute intracranial hemorrhage or extra-axial collection. The ventricles, sulci and cisterns are appropriate size. There is no hydrocephalus. There is no compelling evidence of acute transcortical infarction. MRI is more sensitive in detecting acute infarctions. There are no mass effect. No midline shift. The calvarium is intact. The visualized paranasal sinuses and mastoid air cells are clear. The frontal sinuses are hypoplastic. IMPRESSION: No acute intracranial hemorrhage, mass effects or hydrocephalus. No compelling evidence of acute transcortical infarction at this time. Cervical spine ct w.o contrast: FINDINGS: There is no evidence of cervical spine fracture. The vertebral bodies are normal height, configuration and attenuation. Alignment of the cervical vertebra is anatomic. There is reversal of the cervical curvature, with kyphotic angulation centered at C5-C6. The intervertebral disc spaces are maintained. There is no significant canal or neural foraminal stenosis. Evaluation of the intraspinal canal contents is limited on CT. If further information regarding disc herniation, cord pathology or epidural collection is clinically warranted, then MRI may be obtained. There is no pathologic thickening of the prevertebral soft tissues. IMPRESSION: Reversal of the curvature with no evidence of fracture, significant canal or neural foraminal stenosis in the cervical spine. Head ct w/o contrast: FINDINGS: There is no acute intracranial hemorrhage or extra-axial collection. The ventricles, sulci and cisterns are appropriate size. There is no hydrocephalus. There is no compelling evidence of acute transcortical infarction. MRI is more sensitive in detecting acute infarctions. There are no mass effect. No midline shift. The calvarium is intact. The visualized paranasal sinuses and mastoid air cells are clear. The frontal sinuses are hypoplastic. IMPRESSION: No acute intracranial hemorrhage, mass effects or hydrocephalus. No compelling evidence of acute transcortical infarction at this time. HOSPITAL COURSE: Date of Admission:07/21/17 - Date of Discharge: 07/23/17 36 yr old woman with hx of migraines presented to ED with headache associated with left arm numbness and 1 episode of syncope one week ago. She underwent the above imaging which was negative for mass, hemorrhage, plaques or lesions as the cause of headache and left arm weakness. She remained afebrile, normotensive throughout stay. There were no events recorded on telemonitor. Lab work was negative for leucocytosis, anemia, electrolyte abnormalities. The headache improved with 1 dose of fiorocet. Neurology evaluation most likely suggests complex migraine as the cause of her symptoms. She was recommended to follow-up as outpatient for further evaluation a prescription for cervical spine MRI was provided as well as a fiorocet prn. Minutes to complete discharge: 40 Discharge Summary Reason For Visit: LIGHTHEADEDNESS Condition: Stable - Instructions Diet, Activity, Other Instructions: You were admitted for migraine. Recommendation: - follow-up with Dr. Landeros (neurology) for further treatment and evaluation of your migraine in one week, contact information has been provided for you. Please call to make an appointment. - take fiorocet if your symptoms return, a prescription has been sent to your pharmacy - follow-up with your primary care physician in one week for post-hospital evaluation - a prescription for a neck MRI has been provided for you, please review the results with your pcp or neurologist. If you develop chest pain, trouble breathing, worsening headache, continuos vomiting, unexpected weakness of any limb, or any new symptoms please return to the hospital. Referrals: Jeromy Robert [Primary Care Provider] - Jony Landeros DO [Staff Physician] - Disposition: HOME - Home Medications Comprehensive Discharge Medication List: Ambulatory Orders Acetaminophen [Tylenol .Regular Strength -] 650 mg PO Q6H PRN tablet 07/23/17 Acetaminophen/Caffeine/Butalb [Fioricet -] 1 tablet PO Q6H PRN #15 tablet MDD 4 07/23/17 Miscellaneous Medical Supply [Outpatient Order] 1 each ASDIR #1 [facility] [place] - Cspine MRI without contrast, results to be faxed to PCP This patient is new to me today: Yes Date on this admission: 07/23/17 Emergency Visit: No Critical Care patient: No - Discharge Referral Referred to [facility] No
== END 2017-07-23 12:06 | disposition home or self-care (01) ==
LOC: JER 14:19 → JERBED 18:58 → J4S 20:29
PROVIDERS: ADMIT Internal Medicine; ATTEND Internal Medicine
PROC: 3E0233Z Introduction of Anti-inflammatory into Muscle, Percutaneous Approach (ICD-10-PCS; principal; 2017-07-21)
PROC: 3E0337Z Introduction of Electrolytic and Water Balance Substance into Peripheral Vein, Percutaneous Approach (ICD-10-PCS; 2017-07-21)
DX: G43.111 Migraine with aura, intractable, with status migrainosus (principal); R42 Dizziness and giddiness; R20.2 Paresthesia of skin; R20.0 Anesthesia of skin; M62.81 Muscle weakness (generalized); R55 Syncope and collapse; Z88.0 Allergy status to penicillin; Z88.1 Allergy status to other antibiotic agents
CPT/HCPCS: 36415; 70450-TC; 70553-TC; 72125-TC; 80048; 80053; 81003; 82607; 82746; 83735; 84100; 84443; 84703; 85025; 85027; 85379; 93005; 93010; 96372; 99284-25; G0378; J7030

== ENCOUNTER 2018-03-27 13:09 | Emergency (ER) | payer OTHER ==
[2018-03-27 13:24] VITALS: TEMP 98.2; BMI 29.9
--- NOTE | 2018-03-27 14:46 | PDOC ---
History of Present Illness - General Chief Complaint: Headache Stated Complaint: HEAD/NECK PROBLEM Time Seen by Provider: 03/27/18 13:56 History Source: Patient Exam Limitations: No Limitations - History of Present Illness Initial Comments: 03/27/18 14:16 Pt. is a 37 y.o. F w/ PMHx. of Migraines admitted in 07/2017 for syncope related to headaches, presents today with headaches. Pt. stated that the pain started around 1pm today and is more severe than her normal headaches. Pt. states that it was sudden onset while she was lying down watching TV. Pt. states that she had associated dizziness (room spinning), numbness and deafnes on her entire left side which all has since resolved except for some numbness in the left hand. Pt. states that she follows-up with a Neurologist and Technical Testing Engineer. Pt. denies nausea, vomiting, lightheadedness, dizziness, fevers, chills, constipation or diarrhea at this time. bHCG-negative, Head CT ordered, if negative will follow up with CTA of the Head and C-Spine. CBC, CMP, and PT/INR ordered to rule out metabolic vs. electrolyte abnormalities for numbness. 03/27/18 17:[address] was negative for acute pathology. Pt. unable to get CTA d/t anxiety. Pt. deferred LP and it was agreed that it was not emergent to do so now. Pt. agrees to follow up with her home Neurologist(Daniel Wiley) on Apr.11. Pt. counselled to return if symptoms return and if the head ache does not get better. Timing/Duration: 24 hours Modifying Factors: improves with: other (turning the light off improves headache ) Associated Symptoms: reports: headaches. denies: chest pain, cough, fever/ chills, loss of appetite, nausea/vomiting, shortness of breath, syncope, weakness Beta Tamar Taken at Home(Core Measure): No Past History - Travel Traveled outside of the country in the last 30 days: No Close contact w/someone who was outside of country & ill: No - Past Medical History Allergies/Adverse Reactions: Allergies Allergy/AdvReac Type Severity Reaction Status Date / Time ciprofloxacin [From Cipro] Allergy Verified 07/21/17 14:27 ciprofloxacin HCl Allergy Verified 07/21/17 14:27 [From Cipro] Penicillins Allergy Verified 07/21/17 14:27 Home Medications: Ambulatory Orders Diphenhydramine HCl [Benadryl -] 25 mg PO Q6H PRN #20 capsule 03/27/18 Metoclopramide HCl [Reglan] 10 mg PO Q6H PRN #8 tablet 03/27/18 Naproxen 500 mg PO BID #20 tablet 03/27/18 Anemia: No Asthma: No Cancer: No Cardiac Disorders: No CVA: No COPD: No DVT: No Dementia: No Diabetes: No Dialysis: No HTN: No - Surgical History GI Surgery: No Lung Surgery: No - Reproductive History (#): 2 Para: 0 Therapeutic (s) & number: Yes (1) Spontaneous : 0 - Suicide/Smoking/Psychosocial Hx Smoking History: Never smoked Have you smoked in the past 12 months: No Number of Cigarettes Smoked Daily: 0 Information on smoking cessation initiated: No Hx Alcohol Use: No Drug/Substance Use Hx: No Substance Use Type: None Hx Substance Use Treatment: No Review of Systems - Review of Systems Constitutional: Yes: Weakness. No: Chills, Diaphoresis, Fever, Loss of Appetite HEENTM: Yes: Ear Discharge. No: Eye Pain, Blurred Vision, Recent change in vision, Double Vision, Difficulty Swallowing Respiratory: No: Cough, Shortness of Breath, Wheezing, Productive cough Cardiac (ROS): No: Chest Pain, Edema, Irregular Heart Rate, Lightheadedness, Palpitations, Chest Tightness ABD/GI: No: Abdominal Distended, Constipated, Diarrhea, Difficulty Swallowing, Nausea, Poor Appetite, Poor Fluid Intake : No: Burning, Dysuria, Discharge, Frequency, Hematuria Musculoskeletal: Yes: Muscle Weakness. No: Back Pain, Joint Pain Neurological: Yes: Headache, Numbness, Pre-Existing Deficit (left hand weakness) , Weakness *Physical Exam - Vital Signs Last Vital Signs Temp Pulse Resp BP Pulse Ox 98.2 F 97 H 18 134/71 100 03/27/18 13:21 03/27/18 13:21 03/27/18 13:21 03/27/18 13:21 03/27/18 13:21 - Physical Exam General Appearance: Yes: Nourished, Appropriately Dressed, Moderate Distress HEENT: positive: EOMI, JOHNATHON, Normal Voice, Symmetrical, Pharynx Normal Neck: positive: Tender (mild tenderness to palpation), Trachea midline, Normal Thyroid, Supple. negative: Carotid bruit, Lymphadenopathy (R), Lymphadenopathy (L), Thyromegaly Respiratory/Chest: positive: Lungs Clear, Normal Breath Sounds. negative: Respiratory Distress, Accessory Muscle Use, Crackles, Rales, Wheezing Cardiovascular: positive: Regular Rhythm, Regular Rate, S1, S2. negative: Edema , JVD, Murmur Vascular Pulses: Dorsalis-Pedis (R): 2+, Doralis-Pedis (L): 2+ Gastrointestinal/Abdominal: positive: Normal Bowel Sounds Musculoskeletal: negative: CVA Tenderness, Vertebral Tenderness Extremity: positive: Normal Capillary Refill, Normal Inspection, Normal Range of Motion. negative: Tender, Swelling, Calf Tenderness, Erythema, Inflammation Neurologic: positive: psychologist personnel II-XII NML intact, Fully Oriented, Alert, Normal Response, Motor Strength 5/5 (EXCEPT for left wrist 3/5 human resource consultant strength- chronic) , Responsive Moderate Sedation - Procedure Monitoring Vital Signs: Procedure Monitoring Vital Signs Temperature 98.2 F 03/27/18 13:21 Pulse Rate 97 H 03/27/18 13:21 Respiratory Rate 18 03/27/18 13:21 Blood Pressure 134/71 03/27/18 13:21 O2 Sat by Pulse Oximetry (%) 100 03/27/18 13:21 ED Treatment Course - LABORATORY CBC & Chemistry Diagram: 03/27/18 15:11 03/27/18 15:11 *DC/Admit/Observation/Transfer Diagnosis at time of Disposition: Headache - Discharge Dispostion Disposition: HOME Condition at time of disposition: Stable - Prescriptions Prescriptions: Diphenhydramine HCl [Benadryl -] 25 mg PO Q6H PRN #20 capsule PRN Reason: Headache Metoclopramide HCl [Reglan] 10 mg PO Q6H PRN #8 tablet PRN Reason: Headache Naproxen 500 mg PO BID #20 tablet - Referrals Referrals: Jeromy Robert [Primary Care Provider] - - Patient Instructions Printed Discharge Instructions: DI for Migraine Additional Instructions: You came in for headache associated with left-sided weakness that resolved in the ER. We did a Head CT which came back negative for anything concerning. We gave you some medication for the pain to good effect (Metoproclamide and Toradol). We have started you on some new medications: Naproxen 500mg Twice a Day Metoclopramide 10mg Every 6 hours as needed Benadryl 25mg Twice a day as needed Please follow up with your Primary Care Doctor within 1 week. Please follow up with your Neurologist within 1 week to discuss your Migraines and your left hand weakness. Please return to the ED if you are experiencing worsening headache that won't go away, increasing weakness in your hands or legs, nausea or vomiting that wont go away or any other concerning symptoms. - Post Discharge Activity
[2018-03-27] MEDS ORDERED: ACETAMINOPHEN 1000 MG/100 ML VIAL (NON FORMULARY) IVPB ONE (14:48)
[2018-03-27] MEDS ORDERED: SODIUM CHLORIDE 1,000 ML IV STA (14:48)
[2018-03-27] MEDS ORDERED: METOCLOPRAMIDE HCL INJECTION 10 MG/2 ML VIAL IVPB ONE (14:48)
[2018-03-27] MEDS ORDERED: METOCLOPRAMIDE HCL INJECTION 10 MG/2 ML VIAL ONE (14:53)
[2018-03-27] MEDS ORDERED: ACETAMINOPHEN INJECTION 100 ML IVPB ONE (14:54)
[2018-03-27 15:23] LABS: BASO % 1.2 % (0-2.0); EOS % 1.5 % (0-4.5); HEMOGLOBIN 12.7 GM/dL (10.7-15.3); LYMPH % 28.5 % (8-40); MCH 29.7 pg (25.7-33.7); MCHC 32.6 g/dl (32.0-36.0); MEAN CELL VOLUME 91.2 fl (80-96); MEAN PLT VOLUME 9.1 fl (7.5-11.1); NEUT % 60.8 % (42.8-82.8); PLATELET COUNT 436 K/MM3 (134-434); RBC 4.28 M/mm3 (3.60-5.2); WHITE BLOOD COUNT 10.6 K/mm3 (4.0-10.0)
--- NOTE | 2018-03-27 15:41 | PDOC ---
Attending Attestation - Resident Resident Name: KristoferJun - ED Attending Attestation I have performed the following: I have examined & evaluated the patient, The case was reviewed & discussed with the resident, I agree w/resident's findings & plan, Exceptions are as noted - HPI HPI: 03/27/18 15:42 The patient is a 37 year old female with a significant past medical history of migraines who presents to the ED with a headache 1 hour OR MANAGER. Patient has a history of a previously complicated migraine with left sided weakness that was worked up with an MRI that was negative. Patient comes in today with a sudden onset of left sided headache with neck pain that peaked within 30 minutes associated with one hour of left sided numbness, now resolved. Denies current focal weakness/numbness. Patient states her headache is still present but the pain is less than before. She states her present symptoms feels different than her typical migraines which are usually a gradual onset. No treatments tried. Denies trauma. Denies N/V, stiff neck, fevers, blurry vision, CP, SOB, abd pain , urinary sxs, LE edema. LMP 2 weeks ago. Denies any other symptoms. - Physicial Exam PE: 03/27/18 15:44 GENERAL: Awake, alert, and fully oriented, in no acute distress. Lying on her side, talking to friend at the bedside. EYES: PERRLA, EOMI, sclera anicteric, conjunctiva clear ENT: Oropharynx clear without exudates, uvula midline. Moist mucosa NECK: Normal ROM, supple, no meningismus LUNGS: Breath sounds equal, clear to auscultation bilaterally. No wheezes, and no crackles HEART: Regular rate and rhythm, normal S1 and S2, no murmurs, rubs or gallops ABDOMEN: Soft, nontender, normoactive bowel sounds. No guarding, no rebound. No masses EXTREMITIES: Normal range of motion, no edema. No cords, erythema, or tenderness NEUROLOGICAL: Normal speech, cranial nerves intact, negative pronator drift, 5/ 5 strength in all 4 extremities, normal sensation to light touch in all 4 extremities, normal cerebellar exam, normal gait, normal tone SKIN: Warm, Dry, normal turgor, no rashes or lesions noted. - Medical Decision Making 03/27/18 15:46 37yo F hx complicated migraines presents to the ED with sudden onset headache, neck pain, with now resolved L sided numbness from face to LE. Vitals wnl. Exam wnl, NIHSS 0. Likely complicated migraine although sudden onset of headache/ neck pain is different than her usual headaches, and thus SAH vs carotid artery dissection must be ruled out. UPT neg. Plan for CTH, if negative CTA head/neck. If negative, pt needs LP. No infectious sxs c/f meningitis. 03/27/18 16:47 CTH negative CTA brain/neck pending Labs thus far wnl Pt signed out to oncoming attending Dr. Michaud for f/u on pending diagnostics, possible LP, dispo *DC/Admit/Observation/Transfer Diagnosis at time of Disposition: Headache - Discharge Dispostion Condition at time of disposition: Stable - Referrals Referrals: Jeromy Robert [Primary Care Provider] - - Patient Instructions - Post Discharge Activity - Attestations Physician Attestion: 03/27/18 18:17 I, Dr. Gracie Swann MD, attest that this document has been prepared under my direction and personally reviewed by me in its entirety. I further attest, that it accurately reflects all work, treatment, procedures and medical decision -making performed by me.
[2018-03-27 15:50] LABS: ALBUMIN 3.6 g/dl (3.4-5.0); ALK PHOS 78 U/L (45-117); ANION GAP 6 MMOL/L (8-16); BILIRUBIN,TOTAL 0.2 mg/dL (0.2-1); BLOOD UREA NITROGEN 14 mg/dL (7-18); CALCIUM 9.1 mg/dL (8.5-10.1); CHLORIDE 104 mmol/L (98-107); CO2 29 mmol/L (21-32); CREATININE 0.9 mg/dL (0.55-1.3); GLUCOSE,RANDOM 69 mg/dL (74-106); POTASSIUM 4.9 mmol/L (3.5-5.1); SGOT/AST 36 U/L (15-37); SGPT/ALT 18 U/L (13-61); SODIUM 139 mmol/L (136-145); TOT PROT 7.8 g/dl (6.4-8.2)
[2018-03-27 16:00] LABS: INR 0.9 (0.83-1.09); PROTHROMBIN TIME (PATIENT) 10.6 SEC (9.7-13.0)
[2018-03-27] MEDS ORDERED: KETOROLAC TROMETHAMINE 15 MG/ML VIAL IVPUSH ONE (17:51)
[2018-03-27] MEDS ORDERED: KETOROLAC TROMETHAMINE 15 MG/ML VIAL ONE (17:54)
[2018-03-27 18:24] VITALS: BP 137/75; PULSE 70
--- NOTE | 2018-03-27 19:00 | PDOC ---
*Physical Exam - Vital Signs Last Vital Signs Temp Pulse Resp BP Pulse Ox 98.2 F 70 18 137/75 99 03/27/18 13:21 03/27/18 18:23 03/27/18 18:23 03/27/18 18:23 03/27/18 18:23 ED Treatment Course - LABORATORY CBC & Chemistry Diagram: 03/27/18 15:11 03/27/18 15:11 - ADDITIONAL ORDERS Additional order review: Laboratory Results 03/27/18 03/27/18 03/27/18 15:20 15:11 15:11 PT with INR 10.60 INR 0.90 PTT (Actin FS) 34.0 Sodium 139 Potassium 4.9 Chloride 104 Carbon Dioxide 29 Anion Gap 6 L BUN 14 Creatinine 0.9 Creat Clearance w eGFR > 60 Random Glucose 69 L Calcium 9.1 Total Bilirubin 0.2 AST 36 ALT 18 Alkaline Phosphatase 78 Total Protein 7.8 Albumin 3.6 Urine HCG, Qual Blood Type A POSITIVE Antibody Screen Negative 03/27/18 14:50 PT with INR INR PTT (Actin FS) Sodium Potassium Chloride Carbon Dioxide Anion Gap BUN Creatinine Creat Clearance w eGFR Random Glucose Calcium Total Bilirubin AST ALT Alkaline Phosphatase Total Protein Albumin Urine HCG, Qual Negative Blood Type Antibody Screen 03/27/18 15:11 RBC 4.28 MCV 91.2 MCHC 32.6 RDW 14.0 MPV 9.1 Neutrophils % 60.8 Lymphocytes % 28.5 Monocytes % 8.0 Eosinophils % 1.5 Basophils % 1.2 - Medications Given in the ED: ED Medications Discontinued Medications Generic Name Dose Route Start Last Admin Trade Name Freq PRN Reason Stop Dose Admin Acetaminophen 1,000 mg 03/27/18 14:48 03/27/18 15:55 Ofirmev Injection - IVPB 03/27/18 14:49 1,000 mg ONCE ONE Administration Diphenhydramine HCl 12.5 mg 03/27/18 17:50 03/27/18 18:03 Benadryl Injection - IVPUSH 03/27/18 17:51 12.5 mg ONCE ONE Administration Sodium Chloride 1,000 mls @ 1,000 mls/hr 03/27/18 14:48 03/27/18 15:14 Normal Saline - IV 03/27/18 15:47 1,000 mls/hr ASDIR STA Administration Ketorolac Tromethamine 15 mg 03/27/18 17:51 03/27/18 18:03 Toradol Injection - IVPUSH 03/27/18 17:52 15 mg ONCE ONE Administration Metoclopramide HCl 10 mg 03/27/18 14:48 03/27/18 15:14 Reglan Injection - IVPB 03/27/18 14:49 10 mg ONCE ONE Administration Medical Decision Making - Medical Decision Making 03/27/18 18:55 I seen and evaluated this patient. The patient reported complete resolution of her headache after taking tylenol, benadryl, and reglan. I suspect the patient likely has complex migraine that resolved. We have discussed the nature of an LP to rule out some regular hemorrhage. Given the complete resolution of her symptoms and her previous history of migraines, the patient has decided against the lumbar puncture. Given the symptoms, and resolution, I think that the patient can go home without a lumbar puncture. However, I did give her strict return precautions if the symptoms return. *DC/Admit/Observation/Transfer Diagnosis at time of Disposition: Headache Qualifiers: Headache type: unspecified Headache chronicity pattern: unspecified pattern Intractability: not intractable Qualified Code(s): R51 - Headache - Discharge Dispostion Condition at time of disposition: Stable - Prescriptions Prescriptions: Diphenhydramine HCl [Benadryl -] 25 mg PO Q6H PRN #20 capsule PRN Reason: Headache Metoclopramide HCl [Reglan] 10 mg PO Q6H PRN #8 tablet PRN Reason: Headache Naproxen 500 mg PO BID #20 tablet - Referrals Referrals: Jeromy Robert [Primary Care Provider] - - Patient Instructions Printed Discharge Instructions: DI for Migraine Additional Instructions: You came in for headache associated with left-sided weakness that resolved in the ER. We did a Head CT which came back negative for anything concerning. We gave you some medication for the pain to good effect (Metoproclamide and Toradol). Please follow up with your Primary Care Doctor within 1 week. Please follow up with your Neurologist within 1 week to discuss your Migraines and your left hand weakness. Please return to the ED if you are experiencing worsening headache that won't go away, increasing weakness in your hands or legs, nausea or vomiting that wont go away or any other concerning symptoms. - Post Discharge Activity
== END 2018-03-27 18:50 | disposition home or self-care (01) ==
LOC: JER 13:09
PROC: 3E033GC Introduction of Other Therapeutic Substance into Peripheral Vein, Percutaneous Approach (ICD-10-PCS; principal; 2018-03-27)
PROC: 3E033GC Introduction of Other Therapeutic Substance into Peripheral Vein, Percutaneous Approach (ICD-10-PCS; 2018-03-27)
PROC: 3E033NZ Introduction of Analgesics, Hypnotics, Sedatives into Peripheral Vein, Percutaneous Approach (ICD-10-PCS; 2018-03-27)
PROC: 3E0333Z Introduction of Anti-inflammatory into Peripheral Vein, Percutaneous Approach (ICD-10-PCS; 2018-03-27)
DX: R51 Headache (principal)
CPT/HCPCS: 36415; 70450-TC; 70498-TC; 80053; 84703; 85025; 85610; 85730; 86850; 86900; 86901; 99282-25; J0131; J7030

== ENCOUNTER 2018-03-29 22:13 | Emergency (ER) | payer OTHER ==
[2018-03-29 22:19] VITALS: BP 127/88; PULSE 74; TEMP 97.9; BMI 29.9
--- NOTE | 2018-03-29 22:41 | PDOC ---
History of Present Illness - General Chief Complaint: Weakness Stated Complaint: LEFT SIDE NUMBNESS Time Seen by Provider: 03/29/18 22:27 History Source: Patient Exam Limitations: No Limitations - History of Present Illness Initial Comments: 03/29/18 22:29 37 YOF with h/o migraines, with prior migraine c/b left sided weakness ( admitted here to [facility] in 07/2017 and w/u with negative MRI), who returns to the ED tonight 2 days after initial presentation for headache and neck pain with left sided weakness. She noted at the time of initial presentation on 03/27/18 that her NOGUERA onset was more rapid than normal (maximal intensity within 30 minutes) but otherwise the NOGUERA was typical of her normal ones. Tonight, she notes the pain is located in the back of the head and neck all on the left side. She has photophobia, phonophobia, left arm and leg numbness and weakness, blurry vision, double vision, balance issues (veering to the right when she walks), nausea, and 1 episode NBNB vomiting. Denies change in the NOGUERA with time of day, with laying down flat, etc. Denies f/c, night sweats, weight loss, lymph node swelling, etc. 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 Past History - Past Medical History Allergies/Adverse Reactions: Allergies Allergy/AdvReac Type Severity Reaction Status Date / Time ciprofloxacin [From Cipro] Allergy Verified 03/29/18 22:18 ciprofloxacin HCl Allergy Difficulty Verified 03/29/18 22:59 [From Cipro] Breathing Penicillins Allergy Verified 03/29/18 22:18 IV Contrast Allergy Severe Uncoded 03/29/18 22:58 Home Medications: Ambulatory Orders Naproxen 500 mg PO BID #20 tablet 03/27/18 Diphenhydramine HCl [Benadryl Capsule -] 25 mg PO Q6H PRN #20 capsule 03/30/18 Metoclopramide HCl [Reglan] 10 mg PO Q6H PRN #8 tablet 03/30/18 Anemia: No Asthma: No Cancer: No Cardiac Disorders: No CVA: No COPD: No DVT: No Dementia: No Diabetes: No Dialysis: No HTN: No - Surgical History GI Surgery: No Lung Surgery: No - Reproductive History (#): 2 Para: 0 Therapeutic (s) & number: Yes (1) Spontaneous : 0 - Suicide/Smoking/Psychosocial Hx Smoking History: Never smoked Have you smoked in the past 12 months: No Number of Cigarettes Smoked Daily: 0 Information on smoking cessation initiated: No Hx Alcohol Use: No Drug/Substance Use Hx: No Substance Use Type: None Hx Substance Use Treatment: No Review of Systems - Review of Systems Able to Perform ROS?: Yes Comments:: 03/29/18 23:04 GEN: no fever, chills, malaise, generalized weakness, or weight change HEENT: vision change, no ear pain, sore throat, or eye pain CV: no chest pain, palpitations, lightheadedness, syncope, or edema RESP: no cough, wheezing, or SOB GI: no abdominal pain, nausea, vomiting, diarrhea, constipation, or white/black/ bloody stool : no dysuria, hematuria, incontinence, retention, bleeding, or discharge MSK: neck pain, left extremity weakness, no back pain, muscle pain, or joint swelling/pain NEURO: headache, balance issues, left foot numbness/tingling, no seizure, or vertigo PSYCH: no substance use, no behavior change SKIN: no jaundice, no rash ROS otherwise negative except as noted in HPI *Physical Exam - Vital Signs Last Vital Signs Temp Pulse Resp BP Pulse Ox 97.9 F 74 20 127/88 99 03/29/18 22:15 03/29/18 22:15 03/29/18 22:15 03/29/18 22:15 03/29/18 22:15 03/29/18 23:00 GENERAL: uncomfortable but otherwise nontoxic appearing, laying on stomach on ED stretcher in the dark, A/Ox4, answers questions appropriately, holding left side of head/face HEENT: PERRLA, EOMI, moist mucous membranes NECK/BACK: no midline ttp, no spinal stepoff or deformity, no hematoma, full ROM , neck supple CARDIOVASCULAR: regular rate/rhythm, normal S1S2, no MGR, strong peripheral pulses, capillary refill <2 seconds, extremities wwp, no edema LUNGS/RESPIRATORY: no respiratory distress, CTAB GI/ABDOMEN: symmetric [id number], normoactive BS, soft, no ttp, no midline pulsatile masses : no CVA tenderness EXTREMITIES: no muscle atrophy, no acute deformity, no edema SKIN: warm and dry, no pallor, no jaundice, no rash, no bruising, no skin breakdown, no cuts, no lesions NEUROLOGICAL: GCS 15, CN II-XII intact, ambulating with normal gait, moving all extremities, 5/5 strength proximally and distally, no facial droop, no decreased sensation, normal cerebellar tests, nonpathologic right lateral gaze horizontal nystagmus extinguishing within 4 seconds Moderate Sedation - Procedure Monitoring Vital Signs: Procedure Monitoring Vital Signs Temperature 97.9 F 03/29/18 22:15 Pulse Rate 74 03/29/18 22:15 Respiratory Rate 20 03/29/18 22:15 Blood Pressure 127/88 03/29/18 22:15 O2 Sat by Pulse Oximetry (%) 99 03/29/18 22:15 ED Treatment Course - LABORATORY CBC & Chemistry Diagram: 03/30/18 00:09 03/30/18 00:09 Medical Decision Making - Medical Decision Making 03/29/18 22:53 Adult female Pt p/w headache, no reported mechanism for injury, no new red flag symptoms (see HPI). NOGUERA not worse on awakening in the AM, no B symptoms, trauma, fever, syncope, sudden onset, etc. Patient does note blurry and double vision, LUE/LLE numbness/weakness, and veering to right when walking, no change from her normal neuro sxs that are associated with her normal headaches. Initial Vital Signs Temp Pulse Resp BP Pulse Ox 97.9 F 74 20 127/88 99 03/29/18 22:15 03/29/18 22:15 03/29/18 22:15 03/29/18 22:15 03/29/18 22:15 Exam: As noted in Physical Exam section. DDX IBNLT primary NOGUERA syndrome (tension/migraine/cluster/other incl. primary cough NOGUERA, exertional NOGUERA, postcoital NOGUERA), trigeminal neuralgia, zoster, SAH ( erica. sudden onset), venous sinus thrombosis (erica. OCP//menstruating), subdural or epidural hematoma (erica. after trauma or childbirth), ruptured/ acutely expanded aneurysm, preeclampsia/eclampsia, encephalitis, meningitis, glaucoma, atypical PNA, idiopathic intracranial hypertension, GCA (uncommon <50 yo), mass lesion, brain metastasis (erica. known CA patients and/or NOGUERA with increasing severity/frequency), brain abscess (erica. immunocompromised patients) , DKA, CO poisoning, etc. W/U ordered: CBCD CMP Mg Phos UA UCx hCG TX ordered: Ofirmev, Reglan+Benadryl, IVF Laboratory Tests 03/30/18 03/30/18 00:09 00:09 WBC 12.9 H RBC 4.46 Hgb 13.8 Hct 39.8 MCV 89.1 MCH 31.0 MCHC 34.8 RDW 13.8 Plt Count 440 H MPV 9.3 Absolute Neuts (auto) 8.3 H Neutrophils % 64.2 Lymphocytes % 27.3 Monocytes % 6.9 Eosinophils % 1.0 Basophils % 0.6 Nucleated RBC % 0 Sodium 137 Potassium 4.0 Chloride 104 Carbon Dioxide 25 Anion Gap 8 BUN 10 Creatinine 1.0 Creat Clearance w eGFR > 60 Random Glucose 104 Calcium 9.2 Total Bilirubin 0.2 AST 22 ALT 17 Alkaline Phosphatase 82 Total Protein 8.6 H Albumin 4.2 Reassessment: Patient states feeling much better, very little residual pain. States left-sided weakness still persists somewhat but is improved. She has neuro follow up with her outpatient neurologist Dr. Wiley at [facility] already scheduled for 03/30/18. DISCHARGE This patient has gotten significant relief of symptoms while in the ED. On last reassessment, vitals are wnl, pain is reasonably controlled, and exam is benign. Workup is not concerning for emergency-level pathology at this time. This patient is appropriate for discharge home w/ close outpatient f/u. She is comfortable with this plan. She will take Motrin and/or Tylenol for mild pain. She will take Imitrex (has a supply at home) if she has migraine prodrome. She notes the Reglan and Benadryl that was supposed to be sent last ED visit never arrived at her pharmacy. I have re-sent the E-Rx. She will f/u with neurologist as scheduled later today (03/30/18). She will also follow up with her primary care provider in the next 1-3 days. Specific return precautions are discussed and they will come back to the ER if necessary. *DC/Admit/Observation/Transfer Diagnosis at time of Disposition: Atypical migraine Headache Qualifiers: Headache type: unspecified Headache chronicity pattern: unspecified pattern Intractability: not intractable Qualified Code(s): R51 - Headache - Discharge Dispostion Disposition: HOME Condition at time of disposition: Stable Decision to Admit order: No - Prescriptions Prescriptions: Diphenhydramine HCl [Benadryl Capsule -] 25 mg PO Q6H PRN #20 capsule PRN Reason: Headache Metoclopramide HCl [Reglan] 10 mg PO Q6H PRN #8 tablet PRN Reason: Headache - Referrals Referrals: Jeromy Robert [Primary Care Provider] - - Patient Instructions Printed Discharge Instructions: DI for Headache Additional Instructions: You were seen in the ER for a headache and neurologic symptoms. We did an exam, and we did not find any signs of an emergency. Your pain improved with the medications we gave you here in the ER. After our assessment, we believe you are not having a medical emergency and you are safe to go home. Please take over -the-counter pain relievers like naproxen (aleve) or ibuprofen (Motrin) or Tylenol. Stay very well-hydrated, and try avoiding foods containing the chemicals tyramine and nitrates (such as chocolate, cheese, and processed meats ) because these are associated with migraine-type headaches. Follow up with your primary care provider(s) in the next 1-3 days. Call their clinic [facility], tell them you were seen in the ER, and tell them you need an appointment. During this appointment, talk with your primary care provider about oral contraceptives (if you are taking them) because these also can be associated with some types of headaches. Please come back to the ER at any time, 24 hours a day, for any new or worsening symptoms, like worsening headache, new numbness/ tingling, fainting, dizziness, new vision changes, high fever, or other symptoms. If you are having symptoms that make it unsafe to drive, please call 911. Follow up with your neurologist later today (03/30/18) as previously scheduled. Take Imitrex if you have a migraine prodrome. - Post Discharge Activity
[2018-03-29] MEDS ORDERED: METOCLOPRAMIDE HCL INJECTION 10 MG/2 ML VIAL IVPB ONE (22:50)
[2018-03-29] MEDS ORDERED: ACETAMINOPHEN 1000 MG/100 ML VIAL (NON FORMULARY) IVPB ONE (22:50)
--- NOTE | 2018-03-29 22:51 | PDOC ---
Attending Attestation - HPI HPI: 03/29/18 22:52 The patient is a 37 year old female with a significant past medical history of atypical migraines who presents to the emergency department with a headache since earlier today. The patient reports some associated left sided numbness and weakness with her headache. The patient also reports associated left sided upper and lower extremity numbness, nausea and vomiting. The patient reports that she has experienced episodes similar to this in the past. She states that she was seen in the hospital 2 days ago by which she was treated. The patient reports that with this episode she notes herself going off to the left side when she ambulates. The patient reports taking excedrin at home with no apparent relief. She denies any other symptoms. She denies any fever, chills, diarrhea, constipation or urinary symptoms. She denies and chest pain, shortness of breath or dizziness. The patient denies any other complaints. It is noted that the patient has Neurology at [facility]. Documentation prepared by Amelia Nathan, acting as biomedical manager for Ronnie Haney MD. <Amelia Nathan - Last Filed: 03/29/18 22:52> - Resident Resident Name: Aundrea Pablo - ED Attending Attestation I have performed the following: I have examined & evaluated the patient, The case was reviewed & discussed with the resident, I agree w/resident's findings & plan, Exceptions are as noted - Physicial Exam PE: 03/30/18 02:02 Agree with exam as documented by resident Normal, non-antalgic, non-ataxic gait - Medical Decision Making 03/30/18 02:04 37F hx of complex migraines here with +severe dyer a/w deficits Analgesia re-eval <Ronnie Haney - Last Filed: 03/30/18 02:05>
[2018-03-29] MEDS ORDERED: SODIUM CHLORIDE 0.9% 500 ML INFUS.BAG IV ONE (22:52)
[2018-03-29] MEDS ORDERED: METOCLOPRAMIDE HCL INJECTION 10 MG/2 ML VIAL ONE (23:47)
[2018-03-29] MEDS ORDERED: ACETAMINOPHEN INJECTION 100 ML IVPB ONE (23:47)
[2018-03-30 00:18] LABS: BASO % 0.6 % (0-2.0); HEMATOCRIT 39.8 % (32.4-45.2); HEMOGLOBIN 13.8 GM/dL (10.7-15.3); LYMPH % 27.3 % (8-40); MCHC 34.8 g/dl (32.0-36.0); MEAN CELL VOLUME 89.1 fl (80-96); MEAN PLT VOLUME 9.3 fl (7.5-11.1); MONO % 6.9 % (3.8-10.2); NEUT % 64.2 % (42.8-82.8); PLATELET COUNT 440 K/MM3 (134-434); RBC 4.46 M/mm3 (3.60-5.2); RDW 13.8 % (11.6-15.6); WHITE BLOOD COUNT 12.9 K/mm3 (4.0-10.0)
[2018-03-30 00:46] LABS: ALBUMIN 4.2 g/dl (3.4-5.0); ALK PHOS 82 U/L (45-117); ANION GAP 8 MMOL/L (8-16); BILIRUBIN,TOTAL 0.2 mg/dL (0.2-1); BLOOD UREA NITROGEN 10 mg/dL (7-18); CALCIUM 9.2 mg/dL (8.5-10.1); CHLORIDE 104 mmol/L (98-107); CO2 25 mmol/L (21-32); GLUCOSE,RANDOM 104 mg/dL (74-106); SGOT/AST 22 U/L (15-37); SGPT/ALT 17 U/L (13-61); SODIUM 137 mmol/L (136-145); TOT PROT 8.6 g/dl (6.4-8.2)
== END 2018-03-30 01:23 | disposition home or self-care (01) ==
LOC: JER 22:13
PROC: 3E033NZ Introduction of Analgesics, Hypnotics, Sedatives into Peripheral Vein, Percutaneous Approach (ICD-10-PCS; principal; 2018-03-29)
PROC: 3E033GC Introduction of Other Therapeutic Substance into Peripheral Vein, Percutaneous Approach (ICD-10-PCS; 2018-03-29)
PROC: 3E033GC Introduction of Other Therapeutic Substance into Peripheral Vein, Percutaneous Approach (ICD-10-PCS; 2018-03-29)
DX: G43.809 Other migraine, not intractable, without status migrainosus (principal)
CPT/HCPCS: 36415; 80053; 85025; 99281-25; J0131

== ENCOUNTER 2018-04-01 15:31 | Emergency (ER) | payer OTHER ==
[2018-04-01 15:49] VITALS: BP 128/71; PULSE 78; TEMP 98; BMI 29.9
--- NOTE | 2018-04-01 19:17 | PDOC ---
History of Present Illness - General Chief Complaint: Syncope/Near Syncope Stated Complaint: SENT BY PCP SYNCOPE Time Seen by Provider: 04/01/18 19:07 History Source: Patient Exam Limitations: No Limitations Past History - Past Medical History Allergies/Adverse Reactions: Allergies Allergy/AdvReac Type Severity Reaction Status Date / Time ciprofloxacin [From Cipro] Allergy Verified 04/01/18 15:48 ciprofloxacin HCl Allergy Difficulty Verified 04/01/18 15:48 [From Cipro] Breathing Penicillins Allergy Verified 04/01/18 15:48 IV Contrast Allergy Severe Uncoded 04/01/18 15:48 Home Medications: Ambulatory Orders Naproxen 500 mg PO BID #20 tablet 03/27/18 Diphenhydramine HCl [Benadryl Capsule -] 25 mg PO Q6H PRN #20 capsule 03/30/18 Metoclopramide HCl [Reglan] 10 mg PO Q6H PRN #8 tablet 03/30/18 Cyclobenzaprine HCl [Flexeril 10 mg] 10 mg PO DAILY PRN #14 tablet 04/01/18 Anemia: No Asthma: No Cancer: No Cardiac Disorders: No CVA: No COPD: No DVT: No Dementia: No Diabetes: No Dialysis: No HTN: No - Surgical History GI Surgery: No Lung Surgery: No - Reproductive History (#): 2 Para: 0 Therapeutic (s) & number: Yes (1) Spontaneous : 0 - Suicide/Smoking/Psychosocial Hx Smoking History: Never smoked Have you smoked in the past 12 months: No Number of Cigarettes Smoked Daily: 0 Hx Alcohol Use: No Drug/Substance Use Hx: No Substance Use Type: None Hx Substance Use Treatment: No *Physical Exam - Vital Signs Last Vital Signs Temp Pulse Resp BP Pulse Ox 98.0 F 78 18 128/71 100 04/01/18 15:46 04/01/18 15:46 04/01/18 15:46 04/01/18 15:46 04/01/18 15:46 Moderate Sedation - Procedure Monitoring Vital Signs: Procedure Monitoring Vital Signs Temperature 98.0 F 04/01/18 15:46 Pulse Rate 78 04/01/18 15:46 Respiratory Rate 18 04/01/18 15:46 Blood Pressure 128/71 04/01/18 15:46 O2 Sat by Pulse Oximetry (%) 100 04/01/18 15:46 ED Treatment Course - LABORATORY CBC & Chemistry Diagram: 12/29/18 20:00 04/01/18 20:00 Medical Decision Making - Medical Decision Making Pt was seen at bedside, also will be seen by attending Dr. Gallegos. Pt presenting after a syncopal episode at the grocery store. PE showed fluid behind b/l TMs, no erythema. Considering syncopal episode 2/2 dehydration, cardiac arrhythmia, electrolyte imbalance, URI/influenza. Ordered work-up including CBC, CMP, troponin, ECG. serum . Provided 1 L IV NS, 650 mg PO tylenol, 10 mg IV reglan, and 25 mg IV benadryl for improvement of headache. Will continue to reassess pt and monitor for symptomatic improvement. 04/01/18 21:40 Pt states "my head is feeling better," but is still experiencing pain in her neck. Providing 30 mg IV tylenol, 10 mg PO flexeril, and lidocaine patch. 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 04/01/18 21:42 Labs generally WNL. Influenza and strep throat negative. 04/01/18 21:47 Provided 15 mg IV toradol, lidocaine patch, and 10 mg PO flexeril. Troponin negative. Unlikely ACS given negative troponin, no active chest pain, pt age. 04/01/18 21:51 Pt can be discharged to home with follow-up. Pt advised to follow-up with PCP and cardiology team in 1-2 days. Strict return precautions provided with pt understanding. Sent 10 mg PO flexeril to pt pharmacy to use for muscle spasm. 04/01/18 22:25 *DC/Admit/Observation/Transfer Diagnosis at time of Disposition: Syncope Qualifiers: Syncope type: unspecified Qualified Code(s): R55 - Syncope and collapse - Discharge Dispostion Disposition: HOME Condition at time of disposition: Improved Decision to Admit order: No - Prescriptions Prescriptions: Cyclobenzaprine HCl [Flexeril 10 mg] 10 mg PO DAILY PRN #60 tablet PRN Reason: Muscle Spasms - Referrals Referrals: Jeromy Robert [Primary Care Provider] - Daniel Wiley [Non Staff, Medical] - - Patient Instructions Printed Discharge Instructions: DI for Syncope in Adults (Fainting) Additional Instructions: You were seen in the ER today for after losing consciousness. The results of your labs and ECG today were normal. Please follow-up with your primary care doctor and information systems project manager team within 1-2 days to discuss your visit and make sure your symptoms have improved. Please return to the ER if you have any worsening pain, vision changes, development of fevers or chills, loss of consciousness, inability to tolerate food or fluids, or any other concerns. I have sent 10 mg flexeril (14 tablets) to your pharmacy. Please take this only once per day as needed for muscle spasms in your neck. Do not take this medication before operating a car or heavy machinery, as it can make you drowsy. - Post Discharge Activity
[2018-04-01] MEDS ORDERED: ACETAMINOPHEN 325 MG TABLET (FP) PO ONE (19:39)
[2018-04-01] MEDS ORDERED: SODIUM CHLORIDE 1,000 ML IV STA (19:48)
[2018-04-01] MEDS ORDERED: METOCLOPRAMIDE HCL INJECTION 10 MG/2 ML VIAL IVPUSH ONE (20:13)
[2018-04-01 20:14] LABS: BASO % 0.9 % (0-2.0); EOS % 1.2 % (0-4.5); HEMATOCRIT 38.2 % (32.4-45.2); HEMOGLOBIN 12.6 GM/dL (10.7-15.3); LYMPH % 34.4 % (8-40); MEAN CELL VOLUME 90.8 fl (80-96); MEAN PLT VOLUME 8.8 fl (7.5-11.1); MONO % 7.9 % (3.8-10.2); NEUT % 55.6 % (42.8-82.8); PLATELET COUNT 360 K/MM3 (134-434); RBC 4.21 M/mm3 (3.60-5.2); RDW 13.2 % (11.6-15.6); WHITE BLOOD COUNT 9.2 K/mm3 (4.0-10.0)
[2018-04-01] MEDS ORDERED: METOCLOPRAMIDE HCL INJECTION 10 MG/2 ML VIAL ONE (20:26)
[2018-04-01] MEDS ORDERED: ACETAMINOPHEN 325 MG TABLET (FP) ONE (20:26)
[2018-04-01 20:38] LABS: ALK PHOS 70 U/L (45-117); ANION GAP 6 MMOL/L (8-16); BILIRUBIN,TOTAL 0.3 mg/dL (0.2-1); BLOOD UREA NITROGEN 10 mg/dL (7-18); CALCIUM 8.6 mg/dL (8.5-10.1); CHLORIDE 107 mmol/L (98-107); CO2 25 mmol/L (21-32); CREATININE 0.8 mg/dL (0.55-1.3); GLUCOSE,RANDOM 83 mg/dL (74-106); SGOT/AST 18 U/L (15-37); SGPT/ALT 14 U/L (13-61); SODIUM 138 mmol/L (136-145); TOT PROT 7.5 g/dl (6.4-8.2)
[2018-04-01] MEDS ORDERED: KETOROLAC TROMETHAMINE 15 MG/ML VIAL IVPUSH ONE (21:34)
[2018-04-01] MEDS ORDERED: CYCLOBENZAPRINE HCL 10 MG TABLET (FP) PO ONE (21:35)
[2018-04-01] MEDS ORDERED: LIDOCAINE 5% TOPICAL PATCH TP ONE (21:35)
--- NOTE | 2018-04-01 21:43 | PDOC ---
Attending Attestation - Resident Resident Name: Chela Traylor - ED Attending Attestation I have performed the following: I have examined & evaluated the patient, The case was reviewed & discussed with the resident, I agree w/resident's findings & plan - HPI HPI: 04/01/18 22:30 [id number], with a significant past medical history of migraines, who presents to the emergency department s/p syncope. As per patient, she was in the grocery store today when she had an episode of syncope. She is unaware if she hit her head but, is aware she swayed back and forth prior to her episode. She was evaluated in urgent care prior to her arrival who advised her to report to the ED for further evaluation. The patient currently has a Loop Recorder in place at direction of her aquatic laborer Dr. Leandro Nichols. While in the ED, she endorses a migraine and mild pain to the paraspinal cervical muscles. She denies recent fevers, chills, or dizziness. She denies recent nausea, vomit , diarrhea or constipation. She denies recent dysuria, frequency, urgency or hematuria. She denies recent chest pain or shortness of breath. Allergies: Ciprofloxacin, Penicillins, Contrast Primary Care Physician: Dr. Robert Furniture Salesperson: Dr. Leandro Nichols - Physicial Exam PE: 04/01/18 21:44 NAD, well appearing, PERRL, EOMI, MMM, nl conjunctiva, anicteric; neck supple. T.M. clear. +left lateral cervical paravertebral tenderness, no meningeal signs. lungs clear, ILD to chest. RRR, abdomen soft nontender. FABIAN x4, no focal neuro deficits. gait stable. No peripheral edema. normal color for ethnicity, WWP. 04/01/18 21:46 - Medical Decision Making 04/01/18 21:45 hpi as documented VS wnl. labs and lytes wnl. trop_negative, reassuring. EKG nonischemic prior results seen, neg CT head 03/27. no neuro deficits. prior MRI also neg. no additional imaging indicated msk strain/cervical spasms/cervicalgia on left side no trauma to head. doubt bleed. neg head ct recently. cards called, Dr Meehan, as pt has ILD in place to check for events. will need to follow up outpatient for check, which pt can do. no cp or sob/dizziness or syncope. flu neg. strep neg DC in stable condition, return precautions. rx supportive measures, topical lidoderm, flexeril, OTC analgesics for cervicalgia/msk pain, has h/o migraines. 04/01/18 22:32 Heart Score/ECG Review - ECG Impressions Normal ECG: Yes Comment:: 04/01/18 22:29 EKG normal sinus rhythm, no interval abnormalities, narrow QRS, ST and T wave segments and morphology normal. Nonspecific T wave abnormalities similar to prior.
[2018-04-01] MEDS ORDERED: LIDOCAINE PATCH REMOVAL MC SCH (22:00)
[2018-04-01] MEDS ORDERED: CYCLOBENZAPRINE HCL 10 MG TABLET (FP) ONE (23:22)
[2018-04-01] MEDS ORDERED: LIDOCAINE 5% TOPICAL PATCH ONE (23:23)
[2018-04-01] MEDS ORDERED: KETOROLAC TROMETHAMINE 15 MG/ML VIAL ONE (23:23)
--- NOTE | 2018-04-02 11:27 | EKG ---
Test Reason : Blood Pressure : / mmHG Vent. Rate : 066 BPM Atrial Rate : 066 BPM P-R Int : 126 ms QRS Dur : 082 ms QT Int : 416 ms P-R-T Axes : 043 026 032 degrees QTc Int : 436 ms NORMAL SINUS RHYTHM NORMAL ECG WHEN COMPARED WITH ECG OF 21-JUL-2017 15:11, NO SIGNIFICANT CHANGE WAS FOUND Confirmed by ARUN RAIN MD ([id number]) on 04/02/2018 11:27:03 AM Referred By: Confirmed By:ARUN RAIN MD
== END 2018-04-01 23:35 | disposition home or self-care (01) ==
LOC: JER 15:31
PROC: 3E0337Z Introduction of Electrolytic and Water Balance Substance into Peripheral Vein, Percutaneous Approach (ICD-10-PCS; principal; 2018-04-01)
PROC: 3E033GC Introduction of Other Therapeutic Substance into Peripheral Vein, Percutaneous Approach (ICD-10-PCS; 2018-04-01)
PROC: 3E033GC Introduction of Other Therapeutic Substance into Peripheral Vein, Percutaneous Approach (ICD-10-PCS; 2018-04-01)
PROC: 3E0333Z Introduction of Anti-inflammatory into Peripheral Vein, Percutaneous Approach (ICD-10-PCS; 2018-04-01)
DX: R55 Syncope and collapse (principal); G43.909 Migraine, unspecified, not intractable, without status migrainosus; Z95.818 Presence of other cardiac implants and grafts
CPT/HCPCS: 36415; 80053; 84484; 84703; 85025; 87070; 87804; 87880; 93005; 93010; 99283-25; J7030

== ENCOUNTER 2020-08-17 12:53 | Emergency (ER) | payer OTHER ==
[2020-08-17 13:14] VITALS: BMI 30.2
[2020-08-17] MEDS ORDERED: METHOCARBAMOL 500 MG TABLET PO ONE ×2 (13:43→14:50)
[2020-08-17] MEDS ORDERED: KETOROLAC TROMETHAMINE 30 MG/1 ML VIAL IM ONE (13:43)
[2020-08-17] MEDS ORDERED: LIDOCAINE 5% TOPICAL PATCH TP ONE (13:44)
[2020-08-17] MEDS ORDERED: KETOROLAC TROMETHAMINE 30 MG/1 ML VIAL ONE (13:49)
[2020-08-17] MEDS ORDERED: METHOCARBAMOL 500 MG TABLET ONE ×2 (13:49→15:15)
[2020-08-17] MEDS ORDERED: LIDOCAINE 5% TOPICAL PATCH ONE (13:51)
[2020-08-17 15:36] VITALS: BP 130/82; PULSE 65; TEMP 98.7
[2020-08-17] MEDS ORDERED: LIDOCAINE PATCH REMOVAL MC SCH (22:00)
== END 2020-08-17 15:40 | disposition home or self-care (01) ==
LOC: JER 12:53
PROC: 3E0233Z Introduction of Anti-inflammatory into Muscle, Percutaneous Approach (ICD-10-PCS; principal; 2020-08-17)
DX: S16.1XXA Strain of muscle, fascia and tendon at neck level, initial encounter (principal)
CPT/HCPCS: 93005; 93010; 99284-25